=== PATIENT | female | born 1930 | race Caucasian/White ===

== ENCOUNTER 2017-03-20 13:44 | Observation (INO) | payer MEDICARE, OTHER ==
[~2017-03-20] VITALS: Ht 157.5 cm; Wt 94.0 kg
[~2017-03-20 13:44] MED LIST: ALTOPREV20 MG OR; AMLODIPINE10 MG OR; AMLODIPINE10 MG PO; AMLODIPINE5 MG PO; ASPIRIN81 MG PO; CIPRO XR500 MG PO; CIPRO500 MG PO; CLINDAMYCIN300 M1 PO; COREG25 MG OR; COREG25 MG PO; COUMADIN5 MG PO; COUMADIN7.5 MG PO; COZAAR100 MG PO; D 5000 OR; D3-50 OR; DIAZEPAM5 M1 PO; DICLOXACILL250 MG PO; DIFLUCAN150 MG PO; DOXYCYC MONO100 M1 OR; DUONEB IN; ENALAPRIL20 MG OR; FLAGYL500 MG PO; FLEXERIL10 MG OR; FLEXERIL5 M1 PO; FLONASE0.05 %; FOSAMAX70 MG OR; FUROSEMIDE40 MG OR; FUROSEMIDE40 MG PO; GABAPENTIN100 MG OR; GABAPENTIN100 MG PO; HOME O2; HUMALOG100 MG/ML SC; HYDROCO/APAP1 T10 PO; HYDROCO/APAP1 T11; HYDROCO/APAP1 TA9 PO; HYDROCODONE/ACE1 TA2 PO; HYDROCODONE/ACE1 TAB PO; HYZAAR1 TAB PO; IPRATROPIUM BROMIDE/; LANTUS100 MG/ML SC; LASIX 40 MG TAB40 MG PO; LEVAQUIN500 MG OR; LEVEMIR1000 UNITS SC; LISINOPRIL10 MG OR; LORTAB 10-325 M1 TAB PO; LOSARTAN POT100 MG PO; LOSARTAN POT50 MG PO; LOSARTAN/HCT1 TA1 PO; LYRICA50 MG PO; MAGNESIUM OXID400 M1 PO; MEDDOSEPAK OR; MEDDOSEPAK PO; MEPHYTON5 MG PO; METFORMIN500 M1 OR; METHYLPRED4 MG PO; METOPROLOL SUCC50 MG PO; METRONIDAZOL500 MG PO; NAPROSYN500 MG PO; NEURONTIN300 MG PO; NIFEDIPINE ER90 M1 PO; NITROSTAT0.4 MG PO; NORCO1 TAB PO; NORVASC10 MG OR; NOVOLIN 70/30; NOVOLIN 70/30 RELION SC; NOVOLIN 70/30 SC; NOVOLIN N1 ML SC; NOVOLOG FLEXPEN SC; NOVOLOG MIX SC; NOVOLOG100 IU/1 M SC; OMEPRAZOLE20 M2 PO; OXYBUTYNIN5 MG PO; PEN NEEDLES SC; POT CHLORIDE10 ME1 PO; PRAVACHOL40 MG PO; PRAVASTATIN40 MG PO; PREDNISONE20 MG PO; PRILOSEC20 MG PO; PRILOSEC20 MG/CAP PO; PROCARDIA XL30 MG PO; PROTONIX20 MG PO; SERTRALINE50 MG OR; TIZANIDINE2 MG PO; TRAMADOL HCL E100 MG OR; TRAMADOL HCL50 MG PO; TUSSIONEX1 ML OR; TYLENOL 500MG TAB PO; ULTRAM50 M1 PO; VALIUM2 MG PO; VALIUM5 MG PO; VICODIN1 TAB OR; WARFARIN SODIUM5 MG PO; ZESTRIL40 MG PO; ZITHROMAX250 MG PO; ZPAK OR; [UNRECOGNIZED DRUG - OTHER] OR; [UNRECOGNIZED DRUG - REMARK]
--- NOTE | 2017-03-20 13:44 | NUR ---
PT TO ROOM VIA EMS FOR TREATMENT
--- NOTE | 2017-03-20 13:55 | NUR ---
ADDITIONAL IV ATTEMPT X2 UNSUCCESSFUL. PT STATES "IM A HARD STICK,THATS NOTHING NEW".NO DISTRESS AT THIS TIME. VSS
[2017-03-20] MEDS ORDERED: LOSARTAN/HCT1 TA1 PO (13:58)
[2017-03-20] MEDS ORDERED: NAPROXEN500 MG PO (13:58)
[2017-03-20] MEDS ORDERED: MAGNESIUM400 MG PO (13:59)
[2017-03-20] MEDS ORDERED: HYDROCO/APAP1 T13 PO (14:01)
--- NOTE | 2017-03-20 14:28 | NUR ---
PT SETUP WITH GRAHAM VICKERS. [facility] [address] [facility] PT ALERT AND CONVERSIVE. SPOKE WITH DAUGHTER ON TELEPHONE.
--- NOTE | 2017-03-20 15:20 | NUR ---
LAB AT TO DRAW LABS. UNABLE TO DRAW LACTIC ACID. PT AWAKE AND ALERT. ONLY C/O I'M COLD. WARM BLANKETS FOR COMFORT.
[2017-03-20 15:25] LABS: ALBUMIN 3.4 g/dL (3.2-5.0); ALKALINE PHOSPHATASE 75 u/l (38-126); AMYLASE 35 u/l (30-110); ANION GAP 14 (6-22 (CALC)); BILIRUBIN, TOTAL 0.7 mg/dL (0.0-1.4); BUN 32 mg/dL (8-23); BUN/CREATININE RATIO 33 (12-20 (CALC)); CALCIUM 9.7 mg/dL (8.4-10.2); CARBON DIOXIDE 22 mmol/l (22-30); CHLORIDE 111 mmol/l (95-108); GFR 52 ML/MIN (>=60 (CALC)); GFR FOR AFR.AMER. > 60 ML/MIN (>=60 (CALC)); GLUCOSE 99 mg/dL (82-115); LIPASE 35 u/l (23-300); POTASSIUM 4.4 mmol/l (3.5-5.1); SGOT/AST 22 u/l (9-36); SGPT/ALT 26 u/l (11-66); SODIUM 143 mmol/l (137-146); TOTAL PROTEIN 6.4 g/dL (6.3-8.2)
--- NOTE | 2017-03-20 15:35 | NUR ---
DR BALDERAS AT BEDSIDE AND JOSE MARTIN DRAWN RT GROIN. PT TOLERATED WELL. VSS. PT THEN TO CT FOR CT SCAN
[2017-03-20 15:36] LABS: MYOGLOBIN 62 ng/mL (0 - 62)
[2017-03-20 16:29] LABS: HEMOGLOBIN 11.4 g/dl (12.0-16.0); IMMATURE GRANULOCYTES 0.5 % (0.0-1.0); MEAN CELL VOLUME 92.8 fL CALC (80.0-100.0); MEAN CORPUSCULAR HGB 30.2 pG CALC (26.0-32.0); MEAN CORPUSCULAR HGB CONC 32.6 g/L CALC (32.0-36.0); NEUT# 9.27 thou/uL (2.00-7.15); RED BLOOD COUNT 3.77 mill/uL (4.20-5.60); RED CELL DISTRI WIDTH 13.2 % (11.5-15.5)
[2017-03-20 16:41] LABS: URINE BILIRUBIN - DIPSTICK NEGATIVE (NEGATIVE); URINE BLOOD DIPSTICK NEGATIVE (NEGATIVE); URINE COLOR YELLOW; URINE GLUCOSE - DIPSTICK 100 mg/dL (NEGATIVE); URINE KETONE NEGATIVE (NEGATIVE); URINE LEUK ESTERASE NEGATIVE (NEGATIVE); URINE PH 6.5 (4.5-8.0); URINE PROTEIN - DIPSTICK 100 mg/dL (NEG-TRACE); URINE SPECIFIC GRAVITY 1.015; URINE UROBILINOGEN - DIPSTICK 0.2 E.U./dL (0.2)
--- NOTE | 2017-03-20 16:43 | NUR ---
PT CONSUMED STRAWBERRY GLUCERNA WELL. PT STATES "I LIKED THAT'. MEDICATED FOR BP.
[2017-03-20 16:44] LABS: URINE CLARITY SLIGHT CLOUDY; URINE NITRITE - DIPSTICK POSITIVE (Negative)
[2017-03-20 16:45] LABS: URINE BACTERIA MANY hpf; URINE SQUAMOUS EPITHELIAL CELL FEW EPI/hpf (0-FEW)
--- NOTE | 2017-03-20 17:46 | NUR ---
UP TO CHAIR AT BEDSIDE, EATING EVENING MEAL. PT STATES SHE IS FEELING BETTER.
--- NOTE | 2017-03-20 17:47 | NUR ---
MONROY AT BEDSIDE
--- NOTE | 2017-03-20 18:15 | NUR ---
PT EATING EVENING MEAL SITTING UP AT BEDSIDE. VSS
--- NOTE | 2017-03-20 19:10 | NUR ---
RECEIVED REPORT FROM LIVAN RODRIGUEZ. IN ROOM INTRODUCED SELF TO PT. NO C/O.
--- NOTE | 2017-03-20 20:10 | NUR ---
OOB TO BSC WITH ASSIST.
--- NOTE | 2017-03-20 20:28 | NUR ---
ACCU CHECK 110, MD AWARE.
--- NOTE | 2017-03-20 20:40 | NUR ---
DR VÁZQUEZ MADE AWARE THAT PT. BP IS ELEVATED AT 201/90 AND THAT SHE IS C/O LEG PAIN. NEW ORDERS RECEIVED AND FAXED.
--- NOTE | 2017-03-20 21:11 | NUR ---
PO PAIN MED GIVEN PER MD ORDER. 0213 PO ANTIHYPERTENSIVE GIVEN PER MD ORDER.
--- NOTE | 2017-03-20 21:25 | NUR ---
PT. STATES HER LEFT LEG PAIN HAS NOW DECREASED TO A 9 ON A SCALE OF 1-10.
--- NOTE | 2017-03-20 21:30 | NUR ---
PT. BP NOW 192/77.
--- NOTE | 2017-03-20 21:36 | NUR ---
Admission Note Report Given to: BRAD Transported by: Wheelchair X Stretcher Transported with: X Nurse Transporter X Patent IV O2 Hard Tile Setter Apprentice
--- NOTE | 2017-03-20 21:40 | NUR ---
PT. TRANSFERD TO [facility] [place]ER.
--- NOTE | 2017-03-20 21:45 | NUR ---
PT RECEIVED FROM ER VIA STRETCHER ACCOMPANIED BY ANNABEL RODRIGUEZ, OUT OF STRETCHER TO STANDING SCALE THEN TO BED WITH STEADY GAIT. A/O X3, RESPIRATIONS EVEN AND UNLABORED ON RA. C/O LOWER BACK AND LEFT LEG PAIN 07/04, WAS MEDICATED WITH LORTAB IN ER. ACCUCHECK 130. PO FLUIDS IN REACH. ORIENTED TO BED CONTROLS AND CALL LIGHT. WILL CONTINUE TO MONITOR.
[2017-03-20 21:55] VITALS: BP 166/66
--- NOTE | 2017-03-20 22:47 | NUR ---
PT STATES LORTAB 5MG DONT HELP HER PAIN, ADMITS TO TAKING LORTAB 10MG AT HOME. DR. VÁZQUEZ CALLED BY THIS WRITTER INFORMED OF PT'S UA RESULT AND C/O PAIN MED. NEW ORDER RECEIVED FOR LORTAB 10MG, DC LORAB 5MG AT THIS TIME.
[2017-03-20 23:35] VITALS: BP 153/79
[2017-03-20 23:38] VITALS: BP 147/68
--- NOTE | 2017-03-21 00:43 | NUR ---
RESTING IN SEMIFOWLERS WITH EYES CLOSED, RESPIRATIONS EVEN AND UNLABORED ON RA.
--- NOTE | 2017-03-21 02:10 | NUR ---
OOB TO BSC, VOIDING DARK YELLOW URINE, BACK TO BED. CALL LIGHT IN REACH.
[2017-03-21 04:05] VITALS: BP 161/60
--- NOTE | 2017-03-21 05:31 | NUR ---
RESTING ON RIGHT SIDE WITH EYES CLOSED, RESPIRATIONS EVEN AND UNLABORED, CALL LIGHT IN REACH.
[2017-03-21 06:07] LABS: HEMATOCRIT 33.4 % (37.0-47.0); HEMOGLOBIN 10.8 g/dl (12.0-16.0); IMMATURE GRANULOCYTES 0.2 % (0.0-1.0); MEAN CELL VOLUME 93.3 fL CALC (80.0-100.0); MEAN CORPUSCULAR HGB 30.2 pG CALC (26.0-32.0); MEAN CORPUSCULAR HGB CONC 32.3 g/L CALC (32.0-36.0); NEUT# 3.81 thou/uL (2.00-7.15); RED BLOOD COUNT 3.58 mill/uL (4.20-5.60); RED CELL DISTRI WIDTH 13.1 % (11.5-15.5)
[2017-03-21 06:31] LABS: ALKALINE PHOSPHATASE 66 u/l (38-126); ANION GAP 13 (6-22 (CALC)); BILIRUBIN, TOTAL 0.6 mg/dL (0.0-1.4); BUN 30 mg/dL (8-23); BUN/CREATININE RATIO 30 (12-20 (CALC)); CALCIUM 9.7 mg/dL (8.4-10.2); CALCULATED LDLCHOLESTEROL 68 mg/dL (62-129 (CALC)); CARBON DIOXIDE 25 mmol/l (22-30); CHLORIDE 106 mmol/l (95-108); GFR 52 ML/MIN (>=60 (CALC)); GFR FOR AFR.AMER. > 60 ML/MIN (>=60 (CALC)); GLUCOSE 188 mg/dL (82-115); HDL CHOLESTEROL 39 mg/dL (>=40); POTASSIUM 4.9 mmol/l (3.5-5.1); SGOT/AST 15 u/l (9-36); SGPT/ALT 25 u/l (11-66); SODIUM 139 mmol/l (137-146); TOTAL CHOLESTEROL 123 mg/dl (0-199); TOTAL PROTEIN 5.6 g/dL (6.3-8.2); TOTAL TRIGLYCERIDES 77 mg/dl (30-149); VLDL CHOLESTROL 15 mg/dl (0-48 (CALC))
[2017-03-21 07:36] VITALS: BP 182/86
--- NOTE | 2017-03-21 07:42 | NUR ---
REPORT RECEIVED FROM SUSIE SALINAS. PT ASSISTED TO SIDE OF BED FOR BREAKFAST. PT DENIES PAIN. NO NAUSEA. REPORTING OF CONCERNS ENCOURAGED. PLAN OF CARE DISCUSSED. FALL PRECAUTIONS REINFORCED. CALL LIGHT REVIEWED AND IN REACH. PT STATES UNDERSTANDING.
--- NOTE | 2017-03-21 09:00 | NUR ---
DR. VÁZQUEZ IN TO SEE PT. PLAN OF CARE DISCUSSED. RESTARTING OF PT'S HOME MEDS, STARTING IVF AND ABX. PT STATES UNDERSTANDING OF THIS INFORMATION.
--- NOTE | 2017-03-21 14:00 | NUR ---
PT'S DAUGHTER AT BEDSIDE. INQUIRING ABOUT PLAN OF CARE. PT'S DAUGHTER UPDATED. SHE STATES " BUT SHE SAID DR. VÁZQUEZ IS TAKING HER OFF ALL HER MEDICINE." PT ALSO REASSURED OF MEDICATIONS ORDERED.
[2017-03-21 16:14] VITALS: BP 151/70
--- NOTE | 2017-03-21 16:17 | NUR ---
PT UP TO BSC. TOLERATED ACTIVITY WELL.
[2017-03-21 19:18] VITALS: BP 150/65
--- NOTE | 2017-03-21 20:37 | NUR ---
PT. RESTING IN BED WITH NO DISTRESS NOTED. SCHED MEDS GIVEN. ASSESSMENT COMPLETED. IV SITE PATENT TO [facility], EMS SITE, PER DAYSHIFT NURSE, DR. VÁZQUEZ GAVE THE OKAY TO LEAVE IV SITE IN D/T PT. IS GOING TO BE DISCHARGED IN AM. PT. GIVEN SCHED MEDS PER ORDER. PT. DENIES NEEDS AT THIS TIME. ENCOURAGED TO CALL FOR ANY NEEDS. CALL LIGHT IS IN REACH.WILL CONTINUE TO MONITOR.
--- NOTE | 2017-03-21 23:19 | NUR ---
PT. C/O LLE PAIN 09/03, MEDICATED WITH ORDERED PRN LORTAB, WILL REASSESS. PO FLUIDS OFFERED. ENCOURAGED TO CALL FOR ANY NEEDS. CALL LIGHT IS IN REACH.
[2017-03-22 03:44] VITALS: BP 155/63
--- NOTE | 2017-03-22 03:44 | NUR ---
PT. RESTING IN BED WITH NO DISTRESS NOTED. DENIES NEEDS. VS OBTAINED. CALL LIGHT IS IN REACH. WILL CONTINUE TO MONITOR.
[2017-03-22 06:05] LABS: HEMATOCRIT 31.9 % (37.0-47.0); HEMOGLOBIN 10.3 g/dl (12.0-16.0); IMMATURE GRANULOCYTES 0.2 % (0.0-1.0); MEAN CELL VOLUME 93.3 fL CALC (80.0-100.0); MEAN CORPUSCULAR HGB 30.1 pG CALC (26.0-32.0); MEAN CORPUSCULAR HGB CONC 32.3 g/L CALC (32.0-36.0); NEUT# 3.91 thou/uL (2.00-7.15); RED BLOOD COUNT 3.42 mill/uL (4.20-5.60)
[2017-03-22 06:15] LABS: ALBUMIN 2.8 g/dL (3.2-5.0); BILIRUBIN, TOTAL 0.4 mg/dL (0.0-1.4); CALCIUM 9.3 mg/dL (8.4-10.2); CREATININE 1.1 mg/dL (0.5-1.0); POTASSIUM 4.8 mmol/l (3.5-5.1); TOTAL PROTEIN 5.4 g/dL (6.3-8.2)
--- NOTE | 2017-03-22 07:00 | NUR ---
REPORT RECIEVED FROM MICHAEL DAVILA; PT RESTING IN BED WITH EYES CLOSED; NO S/S OF DISTRESS NOTED; IVF INFUSING AT PRESCRIBED RATE; FALL PRECAUTIONS IN PLACE; CALL LIGHT WITHIN REACH; WILL CONTINUE TO MONITOR
[2017-03-22 08:17] VITALS: BP 174/65
--- NOTE | 2017-03-22 12:00 | NUR ---
PT SITTING UP CHAIR AT BEDSIDE; NO S/S OF DISTRESS NOTED; PT REPORTS BM AFTER MAG CITRATE; PT DENIES ANY PAIN AT THIS TIME;CALL LIGHT WITHIN REACH; WILL CONTINUE TO MONITOR
--- NOTE | 2017-03-22 15:03 | NUR ---
Discharge instructions given. Patient verbalizes understanding of same. Discharged in stable condition via Ambulatory to Home with family. All belongings sent with pt.
== END 2017-03-22 15:04 | disposition home or self-care (01) ==
LOC: ENPENDDIS → ED 13:44 → ED-I 17:37 → ED 20:06 → MS2 20:07
PROVIDERS: Emergency Medicine; ADMIT Internal Medicine Geriatric Medicine; ATTEND Internal Medicine Geriatric Medicine
DX: E11.649 Type 2 diabetes mellitus with hypoglycemia without coma (principal); E86.0 Dehydration; I10 Essential (primary) hypertension; I25.10 Atherosclerotic heart disease of native coronary artery without angina pectoris; E78.5 Hyperlipidemia, unspecified; K21.9 Gastro-esophageal reflux disease without esophagitis; M15.9 Polyosteoarthritis, unspecified; E03.9 Hypothyroidism, unspecified; K27.9 Peptic ulcer, site unspecified, unspecified as acute or chronic, without hemorrhage or perforation; E11.40 Type 2 diabetes mellitus with diabetic neuropathy, unspecified; E66.01 Morbid (severe) obesity due to excess calories; F03.90 Unspecified dementia, unspecified severity, without behavioral disturbance, psychotic disturbance, mood disturbance, and anxiety; N39.0 Urinary tract infection, site not specified; B96.20 Unspecified Escherichia coli [E. coli] as the cause of diseases classified elsewhere; K59.00 Constipation, unspecified; M54.16 Radiculopathy, lumbar region; R11.2 Nausea with vomiting, unspecified; R19.7 Diarrhea, unspecified; R10.13 Epigastric pain

== ENCOUNTER 2017-04-02 14:46 | Emergency (ER) | payer MEDICARE, OTHER ==
[~2017-04-02] VITALS: Ht 157.5 cm; Wt 100.0 kg
[~2017-04-02 14:46] MED LIST changes: +HYDROCO/APAP1 T13 PO; +MAGNESIUM400 MG PO; +NAPROXEN500 MG PO
[2017-04-02 16:47] LABS: HEMATOCRIT 35.5 % (37.0-47.0); HEMOGLOBIN 11.4 g/dl (12.0-16.0); IMMATURE GRANULOCYTES 0.3 % (0.0-1.0); MEAN CELL VOLUME 93.7 fL CALC (80.0-100.0); MEAN CORPUSCULAR HGB 30.1 pG CALC (26.0-32.0); MEAN CORPUSCULAR HGB CONC 32.1 g/L CALC (32.0-36.0); NEUT# 6.65 thou/uL (2.00-7.15); RED BLOOD COUNT 3.79 mill/uL (4.20-5.60); RED CELL DISTRI WIDTH 13.6 % (11.5-15.5)
[2017-04-02 16:58] LABS: ALBUMIN 3.5 g/dL (3.2-5.0); BILIRUBIN, TOTAL 0.6 mg/dL (0.0-1.4); CREATININE 1.4 mg/dL (0.5-1.0); TOTAL PROTEIN 6.6 g/dL (6.3-8.2)
[2017-04-02] MEDS ORDERED: PERCOCET 5/325M1 TAB PO (18:56)
[2017-04-02 19:20] VITALS: BP 197/90
== END 2017-04-02 19:45 | disposition home or self-care (01) ==
LOC: ED 14:46
PROVIDERS: Emergency Medicine
DX: M54.16 Radiculopathy, lumbar region (principal); I10 Essential (primary) hypertension; E11.9 Type 2 diabetes mellitus without complications; J44.9 Chronic obstructive pulmonary disease, unspecified; I25.10 Atherosclerotic heart disease of native coronary artery without angina pectoris; E78.5 Hyperlipidemia, unspecified; M19.90 Unspecified osteoarthritis, unspecified site

== ENCOUNTER 2017-05-08 14:32 | Emergency (ER) | payer MEDICARE, OTHER ==
[~2017-05-08] VITALS: Ht 157.5 cm; Wt 88.6 kg
[~2017-05-08 14:32] MED LIST changes: +PERCOCET 5/325M1 TAB PO
[2017-05-08] MEDS ORDERED: LOSARTAN/HCT1 TA2 PO (15:17)
[2017-05-08] MEDS ORDERED: LASIX 40 MG TAB40 MG PO (15:17)
[2017-05-08] MEDS ORDERED: LORTAB 10-325 M1 TAB PO (15:18)
[2017-05-08] MEDS ORDERED: LOSARTAN POT50 MG PO (15:19)
[2017-05-08] MEDS ORDERED: DIPHENHYDRAM25 MG PO (15:20)
[2017-05-08] MEDS ORDERED: CYMBALTA30 MG PO (15:20)
[2017-05-08] MEDS ORDERED: TIZANIDINE HCL2 M1 PO (15:21)
[2017-05-08] MEDS ORDERED: PERCOCET 5/325M1 TAB PO (17:10)
[2017-05-08] MEDS ORDERED: EC-NAPROSYN500 MG PO (17:10)
[2017-05-08] MEDS ORDERED: PREDNISONE10 MG PO (17:12)
[2017-05-08 17:16] VITALS: BP 138/75
== END 2017-05-08 17:25 | disposition home or self-care (01) ==
LOC: ED 14:32
DX: G89.29 Other chronic pain (principal); M54.5 Low back pain; M25.562 Pain in left knee; M70.52 Other bursitis of knee, left knee

== ENCOUNTER 2018-02-27 15:35 | Emergency (ER) | payer MEDICARE, OTHER ==
[~2018-02-27] VITALS: Ht 157.5 cm; Wt 87.2 kg
[~2018-02-27 15:35] MED LIST changes: +CYMBALTA30 MG PO; +DIPHENHYDRAM25 MG PO; +EC-NAPROSYN500 MG PO; +LOSARTAN/HCT1 TA2 PO; +PREDNISONE10 MG PO; +TIZANIDINE HCL2 M1 PO
[2018-02-27] MEDS ORDERED: VICODIN1 TA1 PO (16:30)
[2018-02-27 16:41] VITALS: BP 129/90
== END 2018-02-27 16:50 | disposition home or self-care (01) ==
LOC: ED 15:35
DX: Z48.02 Encounter for removal of sutures (principal); M54.5 Low back pain; G89.29 Other chronic pain

== ENCOUNTER 2018-03-17 12:59 | Inpatient (IN) | payer MEDICARE, OTHER ==
[~2018-03-17] VITALS: Ht 157.5 cm; Wt 83.6 kg
[~2018-03-17 12:59] MED LIST changes: +VICODIN1 TA1 PO
[2018-03-17 14:02] LABS: HEMATOCRIT 31.6 % (37.0-47.0); IMMATURE GRANULOCYTES 0.4 % (0.0-1.0); MEAN CELL VOLUME 95.2 fL CALC (80.0-100.0); MEAN CORPUSCULAR HGB 30.1 pG CALC (26.0-32.0); MEAN CORPUSCULAR HGB CONC 31.6 g/L CALC (32.0-36.0); NEUT# 5.5 thou/uL (2.00-7.15); RED BLOOD COUNT 3.32 mill/uL (4.20-5.60); RED CELL DISTRI WIDTH 15.2 % (11.5-15.5)
[2018-03-17 14:21] LABS: ALBUMIN 3.5 g/dL (3.2-5.0); ALKALINE PHOSPHATASE 85 u/l (38-126); BILIRUBIN, TOTAL 0.3 mg/dL (0.0-1.4); BUN 35 mg/dL (8-23); BUN/CREATININE RATIO 28 (12-20 (CALC)); CARBON DIOXIDE 28 mmol/l (22-30); CHLORIDE 101 mmol/l (95-108); CREATININE 1.3 mg/dL (0.5-1.0); GFR 39 ML/MIN (>=60 (CALC)); GFR FOR AFR.AMER. 47 ML/MIN (>=60 (CALC)); SGOT/AST 21 u/l (9-36); SGPT/ALT 24 u/l (11-66); SODIUM 138 mmol/l (137-146)
[2018-03-17 14:24] LABS: ANION GAP 14 (6-22 (CALC)); POTASSIUM 5.4 mmol/l (3.5-5.1)
[2018-03-17 14:34] LABS: MYOGLOBIN 60 ng/mL (0 - 62)
[2018-03-17 15:00] LABS: URINE BILIRUBIN - DIPSTICK NEGATIVE (NEGATIVE); URINE BLOOD DIPSTICK NEGATIVE (NEGATIVE); URINE COLOR YELLOW; URINE GLUCOSE - DIPSTICK NEGATIVE (NEGATIVE); URINE KETONE NEGATIVE (NEGATIVE); URINE LEUK ESTERASE NEGATIVE (NEGATIVE); URINE NITRITE - DIPSTICK NEGATIVE (Negative); URINE PROTEIN - DIPSTICK 100 mg/dL (NEG-TRACE); URINE SPECIFIC GRAVITY 1.025; URINE UROBILINOGEN - DIPSTICK 0.2 E.U./dL (0.2)
[2018-03-17 15:12] LABS: URINE CLARITY CLEAR
[2018-03-17 15:13] LABS: URINE RBC 0-2 RBC/hpf (0-5); URINE SQUAMOUS EPITHELIAL CELL FEW EPI/hpf (0-FEW); URINE WBC 0-2 WBC/hpf (0-5)
[2018-03-17] MEDS ORDERED: NOVOLIN R100 UNIT/M (16:00)
[2018-03-17] MEDS ORDERED: NAMENDA10 MG PO (16:01)
[2018-03-17] MEDS ORDERED: METOPROL TAR25 MG PO (16:01)
[2018-03-17] MEDS ORDERED: DITROPAN PO (16:01)
[2018-03-17] MEDS ORDERED: TRIAMCINOLON0.11 EX (16:02)
[2018-03-17] MEDS ORDERED: ASPIRIN81 MG PO (16:02)
[2018-03-17] MEDS ORDERED: PROCARDIA XL90 MG PO (16:02)
[2018-03-17 18:32] VITALS: BP 176/74
[2018-03-18 04:00] VITALS: BP 153/71
[2018-03-18 07:46] VITALS: BP 165/54
[2018-03-18 09:26] LABS: ANION GAP 15 (6-22 (CALC)); BUN 26 mg/dL (8-23); BUN/CREATININE RATIO 25 (12-20 (CALC)); CARBON DIOXIDE 23 mmol/l (22-30); CHLORIDE 104 mmol/l (95-108); GFR 52 ML/MIN (>=60 (CALC)); GFR FOR AFR.AMER. > 60 ML/MIN (>=60 (CALC)); SODIUM 137 mmol/l (137-146)
[2018-03-18 09:31] LABS: POTASSIUM 5.2 mmol/l (3.5-5.1)
[2018-03-18 15:10] VITALS: BP 154/66
[2018-03-18 18:42] VITALS: BP 161/76
[2018-03-19] VITALS (7 sets, daily range): BP systolic 144–175; BP diastolic 54–92
[2018-03-19 05:14] LABS: HEMATOCRIT 32.5 % (37.0-47.0); HEMOGLOBIN 10.3 g/dl (12.0-16.0); MEAN CELL VOLUME 94.8 fL CALC (80.0-100.0); MEAN CORPUSCULAR HGB CONC 31.7 g/L CALC (32.0-36.0); RED BLOOD COUNT 3.43 mill/uL (4.20-5.60)
[2018-03-19 05:27] LABS: CREATININE 1.2 mg/dL (0.5-1.0); MAGNESIUM 1.9 mg/dL (1.6-2.3); POTASSIUM 4.9 mmol/l (3.5-5.1)
[2018-03-20 04:53] VITALS: BP 138/60
[2018-03-20 05:05] LABS: HEMATOCRIT 31.9 % (37.0-47.0); HEMOGLOBIN 10.3 g/dl (12.0-16.0); MEAN CORPUSCULAR HGB CONC 32.3 g/L CALC (32.0-36.0); RED BLOOD COUNT 3.43 mill/uL (4.20-5.60); RED CELL DISTRI WIDTH 14.6 % (11.5-15.5)
[2018-03-20 05:18] LABS: CREATININE 1.3 mg/dL (0.5-1.0); POTASSIUM 4.8 mmol/l (3.5-5.1)
[2018-03-20 05:42] VITALS: BP 181/75
[2018-03-20 05:44] VITALS: BP 178/77
[2018-03-20 05:47] VITALS: BP 163/80
[2018-03-20 07:59] VITALS: BP 145/68
[2018-03-20 08:15] VITALS: BP 145/68
[2018-03-20] MEDS ORDERED: TRAMADOL HCL50 MG PO (12:23)
[2018-03-20] MEDS ORDERED: SEROQUEL25 MG PO (14:56)
== END 2018-03-20 15:35 | disposition home health service (06) | DRG 884 ==
LOC: ED 12:59 → ED-I 17:04 → ED 17:14 → MS2 17:15
PROVIDERS: Emergency Medicine; Internal Medicine; Nurse Practitioner Family; ADMIT Internal Medicine; ATTEND Internal Medicine
DX: F03.91 Unspecified dementia, unspecified severity, with behavioral disturbance (principal); E11.22 Type 2 diabetes mellitus with diabetic chronic kidney disease; E11.42 Type 2 diabetes mellitus with diabetic polyneuropathy; S92.511A Displaced fracture of proximal phalanx of right lesser toe(s), initial encounter for closed fracture; D64.9 Anemia, unspecified; E03.9 Hypothyroidism, unspecified; I13.10 Hypertensive heart and chronic kidney disease without heart failure, with stage 1 through stage 4 chronic kidney disease, or unspecified chronic kidney disease; I25.10 Atherosclerotic heart disease of native coronary artery without angina pectoris; M19.90 Unspecified osteoarthritis, unspecified site; K21.9 Gastro-esophageal reflux disease without esophagitis; J44.9 Chronic obstructive pulmonary disease, unspecified; N18.3 Chronic kidney disease, stage 3 (moderate); E04.1 Nontoxic single thyroid nodule; E86.0 Dehydration; M79.605 Pain in left leg; R39.15 Urgency of urination; R35.0 Frequency of micturition; W19.XXXA Unspecified fall, initial encounter; Y92.009 Unspecified place in unspecified non-institutional (private) residence as the place of occurrence of the external cause; Z86.718 Personal history of other venous thrombosis and embolism; Z91.81 History of falling; Z86.73 Personal history of transient ischemic attack (TIA), and cerebral infarction without residual deficits; Z87.891 Personal history of nicotine dependence
CPT/HCPCS: G0378; J1650; Q9967

== ENCOUNTER 2018-04-11 14:11 | Emergency (ER) | payer MEDICARE, OTHER ==
[~2018-04-11] VITALS: Ht 157.5 cm; Wt 90.0 kg
[~2018-04-11 14:11] MED LIST changes: +DITROPAN PO; +METOPROL TAR25 MG PO; +NAMENDA10 MG PO; +NOVOLIN R100 UNIT/M; +PROCARDIA XL90 MG PO; +SEROQUEL25 MG PO; +TRIAMCINOLON0.11 EX
[2018-04-11 15:31] VITALS: BP 164/61
== END 2018-04-11 15:34 | disposition home or self-care (01) ==
LOC: ED 14:11
DX: S92.512A Displaced fracture of proximal phalanx of left lesser toe(s), initial encounter for closed fracture (principal); E11.9 Type 2 diabetes mellitus without complications; I10 Essential (primary) hypertension; J44.9 Chronic obstructive pulmonary disease, unspecified; I25.10 Atherosclerotic heart disease of native coronary artery without angina pectoris; E78.5 Hyperlipidemia, unspecified; W06.XXXA Fall from bed, initial encounter

== ENCOUNTER 2018-11-29 15:53 | Inpatient (IN) | payer MEDICARE, MEDICAID ==
[~2018-11-29] VITALS: Ht 157.5 cm; Wt 85.5 kg
--- NOTE | 2018-11-29 16:03 | NUR ---
PATIENT TO ROOM VIA EMS AND VOICES NO COMPLAINTS AT THIS TIME. MD NOTIFIED OF PATIENTS STATUS
[2018-11-29] MEDS ORDERED: GLIPIZIDE5 MG PO (16:36)
[2018-11-29] MEDS ORDERED: LOSARTAN POT50 MG PO (16:37)
[2018-11-29] MEDS ORDERED: AMLODIPINE5 MG PO (16:37)
[2018-11-29] MEDS ORDERED: TRAMADOL HYDROC50 MG PO (16:38)
[2018-11-29] MEDS ORDERED: HYDROCO/APAP1 TA9 PO (16:39)
[2018-11-29 17:08] LABS: URINE BILIRUBIN - DIPSTICK NEGATIVE (NEGATIVE); URINE BLOOD DIPSTICK TRACE-LYSED (NEGATIVE); URINE COLOR YELLOW; URINE GLUCOSE - DIPSTICK 100 mg/dL (NEGATIVE); URINE KETONE NEGATIVE (NEGATIVE); URINE LEUK ESTERASE NEGATIVE (NEGATIVE); URINE PROTEIN - DIPSTICK >=300 mg/dL (NEG-TRACE); URINE SPECIFIC GRAVITY 1.025; URINE UROBILINOGEN - DIPSTICK 0.2 E.U./dL (0.2)
--- NOTE | 2018-11-29 17:10 | NUR ---
DAUGHTER STATES PATIENT HAVING RIGHT SIDED WEAKNESS AND RIGHT SIDED FACIAL DROOP OFF AND ON FOR PAST COUPLE OF DAYS. DAUGHTER UNSURE OF ONSET TIME OTHER THAN A COUPLE OF DAYS. PATIENT CURRENTLY HAS AN NIHSS OF 0. MD NOTIFIED OF PATIENT STATUS
--- NOTE | 2018-11-29 17:12 | NUR ---
DAUGHTER STATES THAT WHERE SHE IS STAYING TOLD HER THAT PT HAS BEEN OUT OF HER BLOOD PRESSURE MEDICATION AND BLOOD SUGAR MEDICATION SINCE THE FIRST. ALTHOUGH THE MEDICATION REC THAT WAS SENT WITH PT SHOWS INITIALS THAT APPEAR THAT IT WAS THE MEDICATIONS WAS GIVEN ON THE 4TH LAST.
[2018-11-29 17:21] LABS: URINE NITRITE - DIPSTICK POSITIVE (Negative)
[2018-11-29 17:34] LABS: URINE BACTERIA MANY hpf; URINE SQUAMOUS EPITHELIAL CELL FEW EPI/hpf (0-FEW)
[2018-11-29 18:02] LABS: HEMATOCRIT 31.6 % (37.0-47.0); HEMOGLOBIN 10.3 g/dl (12.0-16.0); IMMATURE GRANULOCYTES 0.3 % (0.0-5.0); MEAN CELL VOLUME 92.9 fL CALC (80.0-100.0); MEAN CORPUSCULAR HGB 30.3 pG CALC (26.0-32.0); MEAN CORPUSCULAR HGB CONC 32.6 g/L CALC (32.0-36.0); NEUT# 3.56 thou/uL (2.00-7.15); RED BLOOD COUNT 3.4 mill/uL (4.20-5.60); RED CELL DISTRI WIDTH 13.8 % (11.5-15.5)
--- NOTE | 2018-11-29 18:03 | NUR ---
PT RESTING QUIETLY ON STRETCHER, DAUGHTER REMAINS AT BEDSIDE, DOCTOR NOTIFIED OF BLOOD PRESSURE
[2018-11-29 18:19] LABS: BILIRUBIN, TOTAL 0.3 mg/dL (0.0-1.4); CREATININE 1.2 mg/dL (0.5-1.0); POTASSIUM 4.8 mmol/l (3.5-5.1); TOTAL PROTEIN 5.8 g/dL (6.3-8.2)
--- NOTE | 2018-11-29 19:00 | NUR ---
PT REMAINS ALERT/ORIENTED X3, DAUGHTER WENT HOME TO FEED ANIMALS. SIDE RAILS REMAIN UP AND CALL LIGHT WITHIN REACH, NO SLURRED SPEACH NOTED, NO INCREASED WEAKNESS TO ARMS. BLOOD PRESSURE HAS COME DOWN TO 170/80 PT STATES FEELS MUCH BETTER,
[2018-11-29 20:30] VITALS: BP 155/74
--- NOTE | 2018-11-29 22:52 | NUR ---
PATIENT RESTING IN BED-IV SITE TO RIGHT AC OCCLUDED AND D/C'ED. NEW IV SITE STARTED TO LEFT HAND WITH GOOD BLOOD RETURN. IVF PATENT AND INFUSING AT 75CC/HR. SAFETY PRECAUTIONS REINFORCED. CALL LIGHT IN REACH. WILL CONT TO MONITOR.
[2018-11-30] VITALS (12 sets, daily range): BP systolic 118–218; BP diastolic 52–80
--- NOTE | 2018-11-30 05:00 | NUR ---
0425-PATIENT PUT HER CALL LIGHT AND STATED "HELP ME, HELP ME"-RESPONDED TO THE ROOM AND PATIENT WAS INCONT OF LARGE AMT OF URINE IN BED-WHEN ASKED IF SHE STILL NEEDED TO VOID SHE STATED YES. ASSISTED PATIENT OOB TO THE [facility] TO VOID. PATIENT CONT TO BE DISTRAUGHT AND SAYING "HELP ME"THEN I CANT TALK. SEEMS TO BE HAVING WORD FOINDING DIFFICULTY. VERY UNSTEADY ON HER FEET AND SOB. ASSISTED BACK TO BED AND VS TAKEN WITH BP-192/75, HR-93 AND O2 SAT 91. O2 VIA NASAL CANNULA APPLIED. PATIENT CONT TO HAVE SOME WORD FINDING DIFFICULTY. HAND GRASP ARE EQUAL AND MODERATE. DR. VÁZQUEZ CALLED-ORDERS RECIEVED. [id number] AT THIS TIME. BP-190/80 EMILIA TO RIGHT ARM. PATIENT IS ORIENTED TO PERSON, PLACE AND SPEECH IS IMPROVING. STATES THAT SHE IS FEELING SOME BETTER. TELE MONITOR APPLIED AND LABS WERE DRAWN. AWAITING CLONIDINE TO BE PROFILED. CALL LIGHT IN REACH. WILL CONT TO MONITOR.
[2018-11-30 05:07] LABS: HEMATOCRIT 32.8 % (37.0-47.0); HEMOGLOBIN 10.8 g/dl (12.0-16.0); IMMATURE GRANULOCYTES 0.4 % (0.0-5.0); MEAN CELL VOLUME 92.9 fL CALC (80.0-100.0); MEAN CORPUSCULAR HGB 30.6 pG CALC (26.0-32.0); MEAN CORPUSCULAR HGB CONC 32.9 g/L CALC (32.0-36.0); NEUT# 3.33 thou/uL (2.00-7.15); RED BLOOD COUNT 3.53 mill/uL (4.20-5.60); RED CELL DISTRI WIDTH 13.6 % (11.5-15.5)
--- NOTE | 2018-11-30 05:17 | NUR ---
PATIENT RESTING IN BED AT THIS TIME WITH O2 VIA NASAL CANNULA IN PLACE. TELE MONITOR IN PLACE. IV TO LEFT HAND INTACT WITH IVF ORDERED. SITE REMAINS HEALTHY AT THIS TIME. MEDICATED WITH CLONIDINE 0.2MG PO ORDERED. SPEECH IS CLEARER THAN EARLIER THIS PAST HOUR. PATIENT STATES THAT SHE IS FEELING BETTER. PATIENT IS ORIENTED TO PERSON AND PLACE. KNOWS HER BIRTHDATE. INCONT OF URINE AGAIN. PERICARE DONE AND PADS WERE CHANGED, BARRIER CREAM APPLIED TO REDDENED BUTTOCKS. CALL LIGHT IN REACH. WILL CONT TO MONITOR.
[2018-11-30 05:19] LABS: ALBUMIN 3.1 g/dL (3.2-5.0); BILIRUBIN, TOTAL 0.4 mg/dL (0.0-1.4); CREATININE 1.2 mg/dL (0.5-1.0); POTASSIUM 4.6 mmol/l (3.5-5.1); TOTAL PROTEIN 6.1 g/dL (6.3-8.2)
--- NOTE | 2018-11-30 06:01 | NUR ---
BP-190/80-CLONIDINE 0.1MG PO IN APPLESAUCE GIVEN. PATIENT HAVING TROUBLE SIPPING THROUGH A STRAW THIS MORNING. STILL WITH SLURRED SPEECH BUT ORIENTEDX2 TO PERSON AND PLACE AND KNOW HER BIRTHDATE. HAND GRASPS ARE EQUAL. CALL LIGHT IN REACH. WILL CONT TO MONITOR.
--- NOTE | 2018-11-30 06:20 | NUR ---
PATIENT RESTING IN BED WITH O2 VIA NASAL CANNULA IN PLACE. MEDICATED WITH APRESOLINE 20MG IVP AND WITH PLAVIX 75MG PO IN APPLESAUCE. STILL WITH SLURRED SPEECH AND DIFFICULTY WITH SWALLOWING. CALL LIGHT IN REACH. WILL CONT TO MONITOR.
[2018-11-30 06:33] LABS: CHOLESTEROL HDL RATIO 3.6 (<4.4 (CALC))
--- NOTE | 2018-11-30 08:30 | NUR ---
DR. VÁZQUEZ AT BEDSIDE TO ASSESS PT. NOTIFIED MD THAT PT HAS INCONTINENCEURINE AND AT TIME HAVING DIFFICULT TIME TO VOID. ALSO, PT HAVING DIFFICULT TO EAT. ORDERS RECEIVED. CALL LIGHT IN REACH.
--- NOTE | 2018-11-30 09:51 | NUR ---
ASSESSMENT DONE . LUNGS SOUND CLEAR/DIMINISHED. PT IS A&O X1. PT DENIES PAIN AT THIS TIME. 02 AT 2L/MIN VIA NC. TELE IN PLACE. INSERTION OF PEARSON WITH STERILE TECHNIQUE AND PT TOLERATED WELL. YELLOW URINE NOTED. SAFETY PRECAUTIONS REINFORCED AND CALL LIGHT IN REACH.
--- NOTE | 2018-11-30 12:14 | NUR ---
PT STILL HAS THE SLURR SPEECH. PT ABLE TO TAKE PILLS WITH APPLESAUCE. PT STATED STILL DIFFICULT TO SWALLOW HER MEAL. PT REFUSED TO EAT HER LUNCH AT THIS TIME. PT DENIES ANY OTHER NEEDS AT THIS TIME. CALL LIGHT IN REACH.
--- NOTE | 2018-11-30 16:02 | NUR ---
PT IS RESTING IN BED AND DENIES NEEDS AT THIS TIME. BED ALARM IN PLACE FOR SAFETY. CALL LIGHT IN REACH.
[2018-12-01] VITALS (10 sets, daily range): BP systolic 143–183; BP diastolic 53–87
--- NOTE | 2018-12-01 00:14 | NUR ---
PATIENT RESTING IN BED AT THIS TIME WITH O2 VIA NASAL CANNULA IN PLACE. EASY TO AROUSE. PATIENT WITH NO COMPLAINTS AT THIS TIME. STILL WITH GARBLED/SLURRED SPEECH. TELE MONITOR IN PLACE. IV SITE TO LEFT HAND INTACT WITH IVF PATENT AND INFUSING ORDERED. SITE REMAINS HEALTHY AT THIS TIME. PEARSON PATENT AND DRAINING YELLOW URINE. SAFETY PRECAUTIONS REINFORCED. BED ALARM IN PLACE FOR PATIENT SAFETY. WILL CONT TO MONITOR.
--- NOTE | 2018-12-01 03:39 | NUR ---
PATIENT APPEARS SLEEPING AT THIS TIME WITH HOB ELEVATED AND EYES CLOSED. RESP ARE EVEN AND UNLABORED. O2 VIA NASAL CANNULA IN PLACE. TELE MONITOR IN PLACE. PEARSON PATENT AND DRAINING YELLOW URINE. IVF PATENT AND INFUSING AT 100CC/HR VIA LEFT HAND SITE. SITE REMAINS HEALTHY AT THIS TIME. CALL LIGHT IN REACH. WILL CONT TO MONITOR.
[2018-12-01 05:39] LABS: ALBUMIN 2.5 g/dL (3.2-5.0); BILIRUBIN, TOTAL 0.4 mg/dL (0.0-1.4); CREATININE 1.2 mg/dL (0.5-1.0); POTASSIUM 4.3 mmol/l (3.5-5.1); TOTAL PROTEIN 5.1 g/dL (6.3-8.2)
[2018-12-01 05:52] LABS: HEMOGLOBIN 9.7 g/dl (12.0-16.0); IMMATURE GRANULOCYTES 0.3 % (0.0-5.0); MEAN CELL VOLUME 93.5 fL CALC (80.0-100.0); MEAN CORPUSCULAR HGB 30.2 pG CALC (26.0-32.0); MEAN CORPUSCULAR HGB CONC 32.3 g/L CALC (32.0-36.0); NEUT# 5.36 thou/uL (2.00-7.15); RED BLOOD COUNT 3.21 mill/uL (4.20-5.60); RED CELL DISTRI WIDTH 13.9 % (11.5-15.5)
--- NOTE | 2018-12-01 07:10 | NUR ---
ASSESSMENT COMPLETED; NO DISTRESS NOTED; DENIES NEEDS/PAIN. VS OBTAINED; PEARSON CATHETER INTACT AND DRAINING AT GRAVITY LEVEL; ENCOURAGED TO CALL FOR ANY NEEDS; CALL LIGHT IS IN REACH; WILL CONTINUE TO MONITOR.
--- NOTE | 2018-12-01 08:19 | NUR ---
pt. pre- medicated with ordered ativan for mri.
--- NOTE | 2018-12-01 08:27 | NUR ---
pt. down to mri via w/c accompanied by volunteer.
--- NOTE | 2018-12-01 10:50 | NUR ---
PT. ASSSISTED BACK TO BED WITH MAX ASSISTANCE; IV TO RW IS LEAKING; REMOVED; CATHETER TIP INTACT; NEW IV STARTED TO RAC X1 ATTEMPT BY MICHAEL APONTE; CALL LIGHT IS IN REACH. WILL CONTINUE TO MONITOR.
--- NOTE | 2018-12-01 12:05 | NUR ---
NOTIFIED DR. VÁZQUEZ OF PT'S RR BEING ELEVATED AND SOUNDING CONGESTED; ORDERS RECEIVED TO STOP IVF;IVF STOPPED AT THIS TIME PER ORDER.
--- NOTE | 2018-12-01 12:40 | NUR ---
SPOKE WITH DR. VÁZQUEZ AND NOTIFIED HIM OF PT'S INCREASE WITH DIFFICULTY SWALLOWING AND CHOKING WHILE GIVING MEDICATIONS THIS AFTERNOON; NEW ORDERS FOR NPO UNTIL SWALLOW EVALUATION; NOTIFIED SPEECH THERAPY OF CONSULT; PER ST THEY MAY BE ABLE TO DO IT BY 2PM; UPDATED MD.
--- NOTE | 2018-12-01 14:31 | NUR ---
Mrs. Field is an 87 year old female who was admitted via ER with complaints of sudden onset R-side droop and weakness with chest pain. Diagnoses included UTI, Unstable Angina and Accelerated HTN. Problems list per ER Dept indicate presence of altered mental state, abnormal ECG and abnormal EKG, DVT of LLE, stage 3 kidney disease, CAD, COPD, diabetes, peptic ulcer disease, and polyarthritis. Upon PARTS DELIVERY DRIVER entering patient's room, she was noted to be in bed at approximately 20 degree angle with daughter at bedside. Patient was oriented to name, birthdate, and current month. Patient was raised to 90 degree angle. Oral mechanism examination revealed upper denture plate with natural lower teeth. Both patient and daughter indicated dentures fit well with no slipping. Obvious right side facial and labial droop noted. Patient able to purse lips but labial mobility and labial sounds were diminished. Lingual ROM and right side lingual sensation decreased. Alveolor ridge and hard palate could not be examined due to denture plate. Tongue bunching prevented soft palate examination. Diminished gag reflex. Patient was mouth breathing with oxygen delivery via nasal canula in place. Saliva management decreased with drooling on right side. Patient was given one sip of water and immediately began coughing. Multiple prompts to cough and swallow were necessary to eliminate "wet" vocal quality. Patient was presented with nectar liquid with no coughing but vocal quality was again "wet" with gurgling during speech observed. Repeated prompts to cough and swallow were required. Intake of bolus of applesauce indicated same symptoms. Patient began crying at one point and drooling was pronounced. Diagnostic recommendation is for patient to remain NPO with positioning at 90 degrees if given medications orally and for 30 minutes post administration. Continue to monitor breath sounds, oxygen saturation and temperature. Initial impression is oral/pharyngeal dysphagia with signs/symptoms of elevated risk for aspiration. Speech intelligibility was <25% for unfamiliar listener. PARTS DELIVERY DRIVER will return 12/02/18 in a.m. to repeat bedside swallow eval with notes to follow. Thank you for this referral. Jolene Wagner M.A., [facility]-PARTS DELIVERY DRIVER
--- NOTE | 2018-12-01 17:11 | NUR ---
DAUGHTER IS IN AT BEDSIDE; UPDATED ON POC; ENCOURAGED TO CALL FOR ANY NEEDS; CALL LIGHT IS IN REACH.
--- NOTE | 2018-12-01 17:56 | NUR ---
IN WITH DR. VÁZQUEZ AT BEDSIDE; DR. VÁZQUEZ UPDATED FAMILY AND PT. ON POC; PER MD HE WILL PLACE NEW ORDERS IN CPOE.
--- NOTE | 2018-12-01 18:28 | NUR ---
MEDICATED WITH ORDERED HYDRALAZINE; B/P 183/85; WILL CONTINUE TO MONITOR.
--- NOTE | 2018-12-01 19:30 | NUR ---
PATIENT RESTING IN BED AT THIS TIME WITH HOB ELEVATED. PATIENT STILL WITH GARBLED SPEECH-WANTS ASSIST WITH CHANGING TV CHANNEL AND WAS ASSISTED. PATIENT WITH RIGHT SIDE FACIAL DROOP AND LEFT EYE DROOP. PATIENT IS NPO SINCE . IV SITE TO RIGHT AC INTACT WITH IVF PATENT AND INFUSING AT 100CC/HR-SITE APPEARS HEALTHY AT THIS TIME. O2 VIA NASAL CANNULA IN PLACE. PEARSON PATENT AND DTRAINING YELLOW URINE. BED ALARM IN PLACE FOR PATIENT SAFETY. CALL LIGHT IN REACH. WILL CONT TO MONITOR.
--- NOTE | 2018-12-01 22:00 | NUR ---
2019 PM-PATIENT CALLED ON NURSE CALL LIGHT AND STAFF RESPONDED TO ROOM-PATIENT FOUND TO BE SOB WITH O2 VIA NASAL CANNULA IN PLACE AT 2LPM. PATIENT VERY ANXIOUS. VS TAKEN AND RECORDED-BP ELEVATED AT 176/87, HR-127, RESPS-30-34. O2 SAT 97% ON O2. SKIN IS WARM AND DRY. STILL HAVING DIFFICULTY WITH SPEECH. 2044PM-DR. VÁZQUEZ CALLED AND NEW ORDERS RECEIVED. VS RE-CHECK AND WERE BP-173/78, HR-115, RESP-32, O2 SAT OF 99%. WILL GIVE MEDS SALAS WHEN PROFILED ON EMAR. 2119- PATIENT MEDICATED WITH ALTIVAN 1MG IVP FOR ANXIETY AND WITH LABETALOL 10MG IVP FOR HTN. WILL MONITOR FOR EFFECT.
--- NOTE | 2018-12-01 22:00 | NUR ---
PATIENT CALMER AND RESTING WITH EYES CLOSED. RESP ARE DOWN TO 24 AT THIS TIME. HR-87, BP-149/75, O2 SAT AT 98. O2 VIA NASAL CANNULA IN PLACE. BED ALARM IN PLACE FOR PATIENT SAFETY. CALL LIGHT IN REACH. WILL CONT TO MONITOR.
[2018-12-02] VITALS (8 sets, daily range): BP systolic 126–165; BP diastolic 51–74
--- NOTE | 2018-12-02 02:10 | NUR ---
RESTING IN BED WITH EYES CLOSED AND HOB ELEVATED. IVF PATENT AND INFUSING AT 100CC/HR ORDERED. PEARSON PATENT AND DRAINING YELLOW URINE. TELE MONTITOR IN PLACE. O2 VIA NASAL CANNULA IN PLACE. BED ALARM REMAINS IN PLACE FOR PATIENT SAFETY. CALL LIGHT IN REACH, WILL CONT TO MONITOR.
[2018-12-02 05:33] LABS: HEMOGLOBIN 10.9 g/dl (12.0-16.0); IMMATURE GRANULOCYTES 0.3 % (0.0-5.0); MEAN CELL VOLUME 93.8 fL CALC (80.0-100.0); NEUT# 6.85 thou/uL (2.00-7.15); RED BLOOD COUNT 3.52 mill/uL (4.20-5.60); RED CELL DISTRI WIDTH 13.9 % (11.5-15.5)
[2018-12-02 05:58] LABS: BILIRUBIN, TOTAL 0.6 mg/dL (0.0-1.4); CREATININE 1.2 mg/dL (0.5-1.0); POTASSIUM 4.7 mmol/l (3.5-5.1); TOTAL PROTEIN 5.9 g/dL (6.3-8.2)
--- NOTE | 2018-12-02 07:00 | NUR ---
RECEIVED REPORT FROM NURSE LECHUGA, PATIENT SLEEPING IN BED, HOOKED TO O2 VIA NC AT 2LPM, EVEN UNLABORED BREATHING AT THIS TIME
--- NOTE | 2018-12-02 09:16 | NUR ---
Upon entering room Mrs. Field was sleeping with head of bed at approximately 40 degree angle. Right side facial droop. Did not rouse to verbal greeting but easily aroused to gentle touch to shoulder with verbal stimulus. Patient indicated she was cold and a blanket was added. Patient positioned at 90 degree angle. Appeared to be somnolent with need for multiple cues to wake. Patient nodded agreement to desire to try one teaspoon of thickened coffee. Two separate tablespoons of nectar coffee resulted in immediate coughing and gurgle with clearing between each bolus. Patient given one tsp of cream of wheat with same results as coffee. Patient verbally prompted to continue to cough and dry swallow to clear. From symptoms, it appears food/liquids are pooling at the point of the pyriform sinus but needs confirmation from MBSS. Recommend patient receive Modified Barium Swallow Study to accurately diagnose level and nature of dysphagia. Patient to remain NPO until MBSS completed. Jolene Wagner M.A., CCC-COCOA BEAN ROASTER HELPER
--- NOTE | 2018-12-02 10:00 | NUR ---
[id number] PT. GIVEN A SSE PER ORDER; PT. WAS UNABLE TO HOLD; CM WORKING ON ACCEPTING HOSPITAL FOR PT'S TRANSFER. ANKUSH THE DAUGHTER WAS UPDATED ON POC AND CM WORKING ON TRANSFER; VERBALIZES UNDERSTANDING.
--- NOTE | 2018-12-02 10:05 | NUR ---
PLACED NGT ON LEFT NARE, FR 14, LENGTH AT 55CM. PROCEDURE TOLERATED, CHECKED FOR PLACEMENT BY TWO NURSES.
--- NOTE | 2018-12-02 11:24 | NUR ---
Attempted treatment this am but nursing reported she had just had an enema and refused to get OOB to chair for them. She still needs to have Barium swallow study done. Will hold treatment at this time.
--- NOTE | 2018-12-02 11:25 | NUR ---
PER RADIOLOGY THEY ARE UNABLE TO DO BARIUM SWALLOW D/T PT. BEING UNABLE TO SWALLOW AND ALSO D/T NGT. NOTIFIED DR. VÁZQUEZ OF THIS AND HE DOES NOT WANT AN ALTERNATIVE IMAGING DONE AT THIS TIME; ALSO NOTIFIED HIM OF SSE GIVEN AND THAT PT. WAS UNABLE TO HOLD IT AND THAT ABD XRAY HAS NOT BEEN DONE YET; PER MD RECEIVED ORDER TO D/C ORDER FOR ABD XRAY; WILL CARRY THIS OUT.
--- NOTE | 2018-12-02 11:30 | NUR ---
PATIENT CURRENTLY RESTING IN BED, AROUSABLE DENIES PAIN OR DISCOMFORT AT THIS TIME, CALL LIGHT WITHIN REACH
--- NOTE | 2018-12-02 12:08 | NUR ---
REASSESSED B/P AND NOW IS 148/66; MEDICATED WITH SCHEDULED HYDRALAZINE; WILL CONTINUE TO MONITOR. DENIES FURTHER NEEDS; CALL LIGHT IS IN REACH. HOB ELEVATED AND NGT PATENT TO LEFT NARE.
--- NOTE | 2018-12-02 13:52 | NUR ---
PT WAS SEEN FOR FOR FUNCTIONAL ACTIVITY. SHE WAS SEEN SUPINE ON BED. PROVIDED VERBAL CUEING AND MOD A TO TURN ON HER SIDE IN PREPARATION TO ASSUME SITTING POSITION. PT THEN MAINTAINED STATIC STATIC STANDING WITH SBA. [id number]-KG-[id number] WITH MAX A OF 2 AND CONSTANT VERBAL AND TACTILE CUES. SHE MANAGED TO TAKE FEW STEPS ~5 STEPS FROM BED TO RECLINER WITH RW AND MAX A OF 2 AND VERBAL CUES. SOB WAS NOTED ALTHROUGHOUT THE ACTIVITY. PT WAS INSTRUCTED ON PROPER BREATHING UNTIL SOB RESOLVED. SHE WAS POSITIONED COMFORTABLY IN THE RECLINER WITH PILLOWS, LEG REST ELEVATED. CALL MONK AND FALL ALARM IN PLACE. NSG WAS IN THE ROOM. NO ADVERSE RXNS NOTED OR REPORTED AT THE END OF ACTIVITY. PT HAS SEVERE BALANCE IMPAIRMENT AND GENERALIZED WEAKNESS AND IS NOT SAFE FOR INDEP AMB. EVEN W/ AD.
--- NOTE | 2018-12-02 14:03 | NUR ---
PATIENTS TEMP WAS 100.2F, RENDERED WASH CLOTH PLACED ON FOREHEAD AND COLD PACKS
--- NOTE | 2018-12-02 14:42 | NUR ---
CALLED DR. VÁZQUEZ AROUND 1425 ABOUT PATIENT SLIGHT TEMP OF 100.2f, AND PAIN ON THROAT ORDERED TO GIVE TORADOL 10MG IM NOW X ONE TIME DOSE.
--- NOTE | 2018-12-02 15:48 | NUR ---
PATIENT CURRENTLY RESTING IN RECLINER, NGT CHECKED FOR PATENCY AND PLACEMENT. RECHECKED TEMP 99.7F.DAUGHTER AT BEDSIDE, CALL LIGHT AT REACH
--- NOTE | 2018-12-02 17:06 | NUR ---
PT RESTING IN BED, STATED RELIEF FROM PAIN, DUE INSULIN GIVEN, CALL LIGHT AT REACH
--- NOTE | 2018-12-02 18:48 | NUR ---
PT IN RESTING IN BED, EASY TO AROUSED, RHONCHI HEARD ON AUSCULTATION, REMAINS ON NPO. AWAITING FOR AVAILABLE BED AT [facility] FOR THE TRANSFER.
--- NOTE | 2018-12-02 19:30 | NUR ---
PATIENT RESTING IN BED AT THIS TIME WITH HOB ELEVATED. PATIENT IS NPO-HAS #14 GHANAIAN NG-TUBE TO LEFT NARE THAT IS CLAMPED. TELE MONITOR IN PLACE. IV SITE TO RIGHT AC INTACT WITH IVF D51/2NS PATENT AND INFUSING AT 100CC/HR. PEARSON PATENT AND DRAINING YELLOW URINE. TRANSFER PENDING FOR TRANSFER TO [facility] FOR NEURO EVAL. SPOKE WITH ANKUSH IN CASE MANAGEMENT WHO STATES THAT WE ARE STILL AWAITING BED ASSIGNMENT AT THIS TIME. BED ALARM IN PLACE FOR PATIENT SAFETY. CALL LIGHT IN REACH. WILL CONT TO MONITOR.
--- NOTE | 2018-12-02 21:20 | NUR ---
SPOKE WITH ERNESTO AT [facility] REGUARDING TRANSFER TO [facility] FOR NEURO CONSULT. STILL NO BED AVAILABLE AT THIS TIME. ERNESTO STATES THAT SHE WILL RETURN CALL SOON BED IS AVAILABLE. WILL CONT TO MONITOR.
--- NOTE | 2018-12-03 | NUR ---
STILL NO RETURN CALL FROM TRANSFER CENTER. PATIENT RESTING INTERMITTANTLY IN BED. PATIENT CONT TO HAVE GARBLED SPEECH. STILL NPO ORDERED WITH NG-TUBE TO LEFT NARE CLAMPED. IVF PATENT AND INFUSING VIA RIGHT AC SITE AT 100CC/HR. PEARSON PATENT AND DRAINING YELLOW URINE. BED ALARM IN PLACE FOR PATIENT SAFETY. HOB REMAINS ELEVATED FOR ASPIRATION PRECAUTIONS. CALL LIGHT IN REACH. WILL CONT TO MONITOR.
[2018-12-03 04:00] VITALS: BP 150/65
--- NOTE | 2018-12-03 04:24 | NUR ---
PATIENT RESTING IN BED WITH EYES CLOSED AND HOB ELEVATED. APPEARS SLEEPING AT THIS TIME. O2 VIA NASAL CANNULA IN PLACE. NG TUBE TO LEFT NARE CLAMPED. IVF D51/2NS PATENT AND INFUSING AT 100CC/HR. SITE REMAINS HEALTHY. PEARSON PATENT AND DRAINING YELLOW URINE. SPOKE WITH KAR AT [facility] AND STILL NO BED ASSIGNMENT AT THIS TIME. BED ALARM IN PLACE FOR PATIENT SAFETY. CALL LIGHT IN REACH. WILL CONT TO MONITOR.
[2018-12-03 07:15] VITALS: BP 132/60
--- NOTE | 2018-12-03 07:15 | NUR ---
PATIENT IV ON RAC IMNFILTRATED, NOTED SWELLING ON RT FOREARM, IV FLUIDS STOPPED, CATHETER REMOVED WAS INTACT. NURSE ANKUSH INSERTED NEW IV LINE ON LEFT HAND G24 HOOKED TO D5.1/2NACL X100CC/HR. WILL CONTINUE TO MONITOR. CALL LIGHT AT REACH.
--- NOTE | 2018-12-03 07:28 | NUR ---
RECEIVED REPORT FROM NURSE OSMAN, PT RESTING IN BED, DENIES PAIN, AROUSABLE, ON TELE, NGT ON LEFT NARE, REMAINS ON CONTINUOUS O2 AT 2LPM, PENDING TRANSFER. CALL LIGHT AT REACH
--- NOTE | 2018-12-03 07:30 | NUR ---
SEEN ON ROUNDS BY INFORMED THAT PATIENT WAS RESTLESS LAST NIGHT PER NIGHT NURSE, ORDERED TO GIVE ATIVAN 1MG IV X ONE TIME DOSE PRIOR TO TRANSFER.
--- NOTE | 2018-12-03 08:00 | NUR ---
PATIENT ALERT AND ORIENTED ABLE TO MAKE NEEDS KNOWN, DENIES PAIN AT THIS TIME, RHONCHI HEARD ON AUSCULTATION, MAINTAINED ON NPO PER ORDER. WILL CONTINUE TO MONITOR, BROOD HATCHERY MANAGER WORKING ON THE TRANSFER.
--- NOTE | 2018-12-03 12:00 | NUR ---
PATIENT RESTING IN BED, AROUSABLE, ABLE TO MAKE NEEDS KNOWN, NGT CHECKED FOR PATENCY, REMAINS ON O2 AT 2LPM CONTINUOUS. NOT IN DISTRESS. CALL LIGHT WITHIN REACH.
[2018-12-03 12:02] VITALS: BP 137/50
[2018-12-03 15:15] VITALS: BP 164/77
--- NOTE | 2018-12-03 16:00 | NUR ---
PATIENT RESTING IN BED, DENIES PAIN AND DISCOMFORTS, AWAITING FOR [facility] FOR THE TRANSFER
--- NOTE | 2018-12-03 18:22 | NUR ---
PATIENT DENIES PAIN OR DISCOMFORT, CALM, PATIENT WAS PICKED UP VIA [facility] AY 1715, AROUND 1815 NURSE TO NURSE REPORT GIVEN TO THERESE
== END 2018-12-03 17:15 | DRG 55 ==
LOC: ED 15:53 → ED-I 18:50 → ED 19:01 → MS2 19:02
PROVIDERS: Emergency Medicine; ADMIT Internal Medicine Geriatric Medicine; ATTEND Internal Medicine Geriatric Medicine
PROC: 0T9B70Z Drainage of Bladder with Drainage Device, Via Natural or Artificial Opening (ICD-10-PCS; principal; 2018-11-30)
DX: D32.0 Benign neoplasm of cerebral meninges (principal); N39.0 Urinary tract infection, site not specified; G93.40 Encephalopathy, unspecified; I10 Essential (primary) hypertension; J44.9 Chronic obstructive pulmonary disease, unspecified; I25.10 Atherosclerotic heart disease of native coronary artery without angina pectoris; E78.5 Hyperlipidemia, unspecified; F41.1 Generalized anxiety disorder; E03.9 Hypothyroidism, unspecified; E66.01 Morbid (severe) obesity due to excess calories; E11.40 Type 2 diabetes mellitus with diabetic neuropathy, unspecified; K27.9 Peptic ulcer, site unspecified, unspecified as acute or chronic, without hemorrhage or perforation; K21.9 Gastro-esophageal reflux disease without esophagitis; M19.019 Primary osteoarthritis, unspecified shoulder; F03.90 Unspecified dementia, unspecified severity, without behavioral disturbance, psychotic disturbance, mood disturbance, and anxiety; R13.10 Dysphagia, unspecified; E86.0 Dehydration; B96.4 Proteus (mirabilis) (morganii) as the cause of diseases classified elsewhere; Z68.34 Body mass index [BMI] 34.0-34.9, adult; Z91.81 History of falling; Z86.73 Personal history of transient ischemic attack (TIA), and cerebral infarction without residual deficits; Z90.49 Acquired absence of other specified parts of digestive tract
CPT/HCPCS: G0378; J1956; J2060

== ENCOUNTER 2019-03-04 16:40 | Inpatient (IN) | payer MEDICARE, OTHER, MEDICAID ==
[~2019-03-04] VITALS: Ht 157.5 cm; Wt 86.2 kg
[~2019-03-04 16:40] MED LIST changes: +GLIPIZIDE5 MG PO; +TRAMADOL HYDROC50 MG PO
[2019-03-04 17:43] LABS: URINE BILIRUBIN - DIPSTICK NEGATIVE (NEGATIVE); URINE BLOOD DIPSTICK TRACE-INTACT (NEGATIVE); URINE COLOR YELLOW; URINE GLUCOSE - DIPSTICK 250 mg/dL (NEGATIVE); URINE KETONE NEGATIVE (NEGATIVE); URINE NITRITE - DIPSTICK NEGATIVE (Negative); URINE PH 8.5 (4.5-8.0); URINE PROTEIN - DIPSTICK >=300 mg/dL (NEG-TRACE); URINE SPECIFIC GRAVITY 1.015; URINE UROBILINOGEN - DIPSTICK 0.2 E.U./dL (0.2)
[2019-03-04 17:44] LABS: URINE LEUK ESTERASE SMALL (NEGATIVE)
[2019-03-04 17:48] LABS: HEMATOCRIT 30.6 % (37.0-47.0); HEMOGLOBIN 9.3 g/dl (12.0-16.0); IMMATURE GRANULOCYTES 0.4 % (0.0-5.0); MEAN CELL VOLUME 97.8 fL CALC (80.0-100.0); MEAN CORPUSCULAR HGB 29.7 pG CALC (26.0-32.0); MEAN CORPUSCULAR HGB CONC 30.4 g/L CALC (32.0-36.0); NEUT# 7.89 thou/uL (2.00-7.15); RED BLOOD COUNT 3.13 mill/uL (4.20-5.60); RED CELL DISTRI WIDTH 14.3 % (11.5-15.5)
[2019-03-04] MEDS ORDERED: LEVEMIR FL100 UNIT/M SC ×2 (17:53→18:34)
[2019-03-04] MEDS ORDERED: METOPROL TAR25 MG PO ×2 (17:53→18:35)
[2019-03-04 17:54] LABS: URINE BACTERIA MANY hpf; URINE SQUAMOUS EPITHELIAL CELL MODERATE EPI/hpf (0-FEW); URINE YEAST MANY hpf
[2019-03-04 17:55] LABS: URINE TRIP PHOS CRYSTALS MANY lpf
[2019-03-04] MEDS ORDERED: DOCUSATE CALCI240 MG PO (18:03)
[2019-03-04] MEDS ORDERED: PREVACID30 M1 PO (18:03)
[2019-03-04 18:07] LABS: ALKALINE PHOSPHATASE 95 u/l (38-126); BILIRUBIN, TOTAL 0.3 mg/dL (0.0-1.4); BUN 69 mg/dL (8-23); BUN/CREATININE RATIO 75 (12-20 (CALC)); CHLORIDE 101 mmol/l (95-108); CREATININE 0.9 mg/dL (0.5-1.0); GFR 59 ML/MIN (>=60 (CALC)); GFR FOR AFR.AMER. > 60 ML/MIN (>=60 (CALC)); LIPASE 29 u/l (23-300); SODIUM 142 mmol/l (137-146)
[2019-03-04 18:08] LABS: ALBUMIN 3.8 g/dL (3.2-5.0); ANION GAP 15 (6-22 (CALC)); CARBON DIOXIDE 31 mmol/l (22-30); POTASSIUM 5.3 mmol/l (3.5-5.1); SGOT/AST 38 u/l (9-36); TOTAL PROTEIN 7.6 g/dL (6.3-8.2)
[2019-03-04] MEDS ORDERED: SURFAK240 MG/CAP PO (18:32)
[2019-03-04] MEDS ORDERED: PREVACID30 M2 PO (18:33)
[2019-03-04] MEDS ORDERED: PROVIGIL100 M1 (18:34)
[2019-03-04] MEDS ORDERED: MAGNESIUM OXID400 M3 (18:34)
[2019-03-04] MEDS ORDERED: FIASP FLEX100 UNIT/M (18:35)
[2019-03-04] MEDS ORDERED: CLONIDINE0.1 MG PO (18:35)
[2019-03-04 19:55] VITALS: BP 149/55
[2019-03-04 20:10] VITALS: BP 134/59
[2019-03-04 20:25] VITALS: BP 165/72
[2019-03-04 20:40] VITALS: BP 179/87
[2019-03-04 22:00] VITALS: BP 199/69
[2019-03-05] VITALS (34 sets, daily range): BP systolic 117–208; BP diastolic 40–92
[2019-03-05 05:53] LABS: HEMATOCRIT 26.4 % (37.0-47.0); HEMOGLOBIN 8.2 g/dl (12.0-16.0); IMMATURE GRANULOCYTES 0.2 % (0.0-5.0); MEAN CELL VOLUME 97.4 fL CALC (80.0-100.0); MEAN CORPUSCULAR HGB 30.3 pG CALC (26.0-32.0); MEAN CORPUSCULAR HGB CONC 31.1 g/L CALC (32.0-36.0); NEUT# 5.84 thou/uL (2.00-7.15); RED BLOOD COUNT 2.71 mill/uL (4.20-5.60); RED CELL DISTRI WIDTH 14.5 % (11.5-15.5)
[2019-03-05 06:17] LABS: ALKALINE PHOSPHATASE 78 u/l (38-126); AMYLASE 34 u/l (30-110); ANION GAP 10 (6-22 (CALC)); BILIRUBIN, TOTAL 0.3 mg/dL (0.0-1.4); BUN 64 mg/dL (8-23); BUN/CREATININE RATIO 74 (12-20 (CALC)); CARBON DIOXIDE 33 mmol/l (22-30); CHLORIDE 105 mmol/l (95-108); CREATININE 0.9 mg/dL (0.5-1.0); GFR 59 ML/MIN (>=60 (CALC)); GFR FOR AFR.AMER. > 60 ML/MIN (>=60 (CALC)); LIPASE 26 u/l (23-300); MAGNESIUM 2.3 mg/dL (1.6-2.3); POTASSIUM 4.9 mmol/l (3.5-5.1); SGOT/AST 30 u/l (9-36); SODIUM 143 mmol/l (137-146); TOTAL PROTEIN 6.2 g/dL (6.3-8.2)
[2019-03-06] VITALS (24 sets, daily range): BP systolic 136–193; BP diastolic 41–70
[2019-03-06 04:25] LABS: HEMATOCRIT 26.2 % (37.0-47.0); IMMATURE GRANULOCYTES 0.3 % (0.0-5.0); MEAN CELL VOLUME 99.2 fL CALC (80.0-100.0); MEAN CORPUSCULAR HGB 30.3 pG CALC (26.0-32.0); MEAN CORPUSCULAR HGB CONC 30.5 g/L CALC (32.0-36.0); NEUT# 7.18 thou/uL (2.00-7.15); RED BLOOD COUNT 2.64 mill/uL (4.20-5.60); RED CELL DISTRI WIDTH 14.5 % (11.5-15.5)
[2019-03-06 04:58] LABS: ALKALINE PHOSPHATASE 75 u/l (38-126); ANION GAP 11 (6-22 (CALC)); BILIRUBIN, TOTAL 0.2 mg/dL (0.0-1.4); BUN 54 mg/dL (8-23); BUN/CREATININE RATIO 63 (12-20 (CALC)); CARBON DIOXIDE 31 mmol/l (22-30); CHLORIDE 107 mmol/l (95-108); CREATININE 0.9 mg/dL (0.5-1.0); GFR 59 ML/MIN (>=60 (CALC)); GFR FOR AFR.AMER. > 60 ML/MIN (>=60 (CALC)); MAGNESIUM 2.2 mg/dL (1.6-2.3); POTASSIUM 4.9 mmol/l (3.5-5.1); SGOT/AST 31 u/l (9-36); SODIUM 144 mmol/l (137-146); TOTAL PROTEIN 6.2 g/dL (6.3-8.2)
[2019-03-07] VITALS (24 sets, daily range): BP systolic 119–216; BP diastolic 54–104
[2019-03-07 04:44] LABS: HEMATOCRIT 26.6 % (37.0-47.0); HEMOGLOBIN 7.9 g/dl (12.0-16.0); IMMATURE GRANULOCYTES 0.2 % (0.0-5.0); MEAN CELL VOLUME 100.8 fL CALC (80.0-100.0); MEAN CORPUSCULAR HGB 29.9 pG CALC (26.0-32.0); MEAN CORPUSCULAR HGB CONC 29.7 g/L CALC (32.0-36.0); NEUT# 5.11 thou/uL (2.00-7.15); RED BLOOD COUNT 2.64 mill/uL (4.20-5.60); RED CELL DISTRI WIDTH 14.5 % (11.5-15.5)
[2019-03-07 04:49] LABS: ALBUMIN 2.9 g/dL (3.2-5.0); ALKALINE PHOSPHATASE 72 u/l (38-126); ANION GAP 11 (6-22 (CALC)); BILIRUBIN, TOTAL 0.2 mg/dL (0.0-1.4); BUN 52 mg/dL (8-23); BUN/CREATININE RATIO 65 (12-20 (CALC)); CARBON DIOXIDE 31 mmol/l (22-30); CHLORIDE 107 mmol/l (95-108); CREATININE 0.8 mg/dL (0.5-1.0); GFR > 60 ML/MIN (>=60 (CALC)); GFR FOR AFR.AMER. > 60 ML/MIN (>=60 (CALC)); MAGNESIUM 2.1 mg/dL (1.6-2.3); POTASSIUM 5.1 mmol/l (3.5-5.1); SGOT/AST 30 u/l (9-36); SODIUM 143 mmol/l (137-146); TOTAL PROTEIN 6.2 g/dL (6.3-8.2)
[2019-03-07 05:19] LABS: TSH, 3RD GENERATION 0.68 uIU/mL (0.47 - 4.68)
[2019-03-08] VITALS (17 sets, daily range): BP systolic 61–225; BP diastolic 53–107
[2019-03-09] VITALS (17 sets, daily range): BP systolic 124–184; BP diastolic 52–84
[2019-03-10] VITALS (22 sets, daily range): BP systolic 53–175; BP diastolic 41–79
[2019-03-10 05:38] LABS: HEMATOCRIT 27.1 % (37.0-47.0); HEMOGLOBIN 8.1 g/dl (12.0-16.0); IMMATURE GRANULOCYTES 0.4 % (0.0-5.0); MEAN CELL VOLUME 99.6 fL CALC (80.0-100.0); MEAN CORPUSCULAR HGB 29.8 pG CALC (26.0-32.0); MEAN CORPUSCULAR HGB CONC 29.9 g/L CALC (32.0-36.0); NEUT# 7.25 thou/uL (2.00-7.15); RED BLOOD COUNT 2.72 mill/uL (4.20-5.60); RED CELL DISTRI WIDTH 14.7 % (11.5-15.5)
[2019-03-10 06:20] LABS: ALBUMIN 2.8 g/dL (3.2-5.0); ALKALINE PHOSPHATASE 75 u/l (38-126); ANION GAP 10 (6-22 (CALC)); BILIRUBIN, TOTAL 0.2 mg/dL (0.0-1.4); BUN 50 mg/dL (8-23); BUN/CREATININE RATIO 63 (12-20 (CALC)); CARBON DIOXIDE 30 mmol/l (22-30); CHLORIDE 108 mmol/l (95-108); CREATININE 0.8 mg/dL (0.5-1.0); GFR > 60 ML/MIN (>=60 (CALC)); GFR FOR AFR.AMER. > 60 ML/MIN (>=60 (CALC)); MAGNESIUM 2.2 mg/dL (1.6-2.3); SGOT/AST 33 u/l (9-36); SODIUM 143 mmol/l (137-146); TOTAL PROTEIN 5.9 g/dL (6.3-8.2)
[2019-03-10 06:26] LABS: POTASSIUM 5.2 mmol/l (3.5-5.1)
[2019-03-11] VITALS (19 sets, daily range): BP systolic 101–189; BP diastolic 40–82
[2019-03-11 05:22] LABS: HEMATOCRIT 27.1 % (37.0-47.0); HEMOGLOBIN 8.1 g/dl (12.0-16.0); IMMATURE GRANULOCYTES 0.3 % (0.0-5.0); MEAN CELL VOLUME 100.4 fL CALC (80.0-100.0); MEAN CORPUSCULAR HGB CONC 29.9 g/L CALC (32.0-36.0); NEUT# 6.55 thou/uL (2.00-7.15); RED BLOOD COUNT 2.7 mill/uL (4.20-5.60); RED CELL DISTRI WIDTH 14.6 % (11.5-15.5)
[2019-03-11 06:41] LABS: ALBUMIN 2.6 g/dL (3.2-5.0); ALKALINE PHOSPHATASE 71 u/l (38-126); BILIRUBIN, TOTAL 0.3 mg/dL (0.0-1.4); BUN 54 mg/dL (8-23); BUN/CREATININE RATIO 61 (12-20 (CALC)); CARBON DIOXIDE 31 mmol/l (22-30); CHLORIDE 108 mmol/l (95-108); CREATININE 0.9 mg/dL (0.5-1.0); GFR 59 ML/MIN (>=60 (CALC)); GFR FOR AFR.AMER. > 60 ML/MIN (>=60 (CALC)); MAGNESIUM 2.2 mg/dL (1.6-2.3); SGOT/AST 30 u/l (9-36); SODIUM 142 mmol/l (137-146); TOTAL PROTEIN 5.5 g/dL (6.3-8.2)
[2019-03-11 06:50] LABS: ANION GAP 9 (6-22 (CALC)); POTASSIUM 5.6 mmol/l (3.5-5.1)
[2019-03-12] VITALS (17 sets, daily range): BP systolic 96–182; BP diastolic 35–100
[2019-03-12 05:18] LABS: HEMATOCRIT 25.2 % (37.0-47.0); HEMOGLOBIN 7.6 g/dl (12.0-16.0); IMMATURE GRANULOCYTES 1.1 % (0.0-5.0); MEAN CORPUSCULAR HGB 30.2 pG CALC (26.0-32.0); MEAN CORPUSCULAR HGB CONC 30.2 g/L CALC (32.0-36.0); NEUT# 4.85 thou/uL (2.00-7.15); RED BLOOD COUNT 2.52 mill/uL (4.20-5.60); RED CELL DISTRI WIDTH 14.5 % (11.5-15.5)
[2019-03-12 05:37] LABS: ALBUMIN 2.5 g/dL (3.2-5.0); ALKALINE PHOSPHATASE 72 u/l (38-126); ANION GAP 9 (6-22 (CALC)); BILIRUBIN, TOTAL 0.2 mg/dL (0.0-1.4); BUN 55 mg/dL (8-23); BUN/CREATININE RATIO 62 (12-20 (CALC)); CARBON DIOXIDE 31 mmol/l (22-30); CHLORIDE 106 mmol/l (95-108); CREATININE 0.9 mg/dL (0.5-1.0); GFR 59 ML/MIN (>=60 (CALC)); GFR FOR AFR.AMER. > 60 ML/MIN (>=60 (CALC)); MAGNESIUM 2.2 mg/dL (1.6-2.3); SGOT/AST 29 u/l (9-36); SODIUM 140 mmol/l (137-146); TOTAL PROTEIN 5.4 g/dL (6.3-8.2)
[2019-03-12 05:58] LABS: POTASSIUM 5.7 mmol/l (3.5-5.1)
[2019-03-13] VITALS: BP 141/63
[2019-03-13 04:15] VITALS: BP 173/76
[2019-03-13 05:45] VITALS: BP 157/72
[2019-03-13 05:45] LABS: HEMATOCRIT 30.5 % (37.0-47.0); HEMOGLOBIN 9.2 g/dl (12.0-16.0); IMMATURE GRANULOCYTES 0.4 % (0.0-5.0); MEAN CELL VOLUME 99.3 fL CALC (80.0-100.0); MEAN CORPUSCULAR HGB CONC 30.2 g/L CALC (32.0-36.0); NEUT# 5.53 thou/uL (2.00-7.15); RED BLOOD COUNT 3.07 mill/uL (4.20-5.60); RED CELL DISTRI WIDTH 14.6 % (11.5-15.5)
[2019-03-13 06:08] LABS: ALKALINE PHOSPHATASE 78 u/l (38-126); ANION GAP 11 (6-22 (CALC)); BILIRUBIN, TOTAL 0.4 mg/dL (0.0-1.4); BUN 57 mg/dL (8-23); BUN/CREATININE RATIO 75 (12-20 (CALC)); CARBON DIOXIDE 26 mmol/l (22-30); CHLORIDE 109 mmol/l (95-108); CREATININE 0.8 mg/dL (0.5-1.0); GFR > 60 ML/MIN (>=60 (CALC)); GFR FOR AFR.AMER. > 60 ML/MIN (>=60 (CALC)); MAGNESIUM 2.1 mg/dL (1.6-2.3); SGOT/AST 38 u/l (9-36); SODIUM 140 mmol/l (137-146); TOTAL PROTEIN 6.2 g/dL (6.3-8.2)
[2019-03-13 06:09] LABS: POTASSIUM 5.7 mmol/l (3.5-5.1)
[2019-03-13 07:49] VITALS: BP 127/61
[2019-03-13 13:51] LABS: URINE BILIRUBIN - DIPSTICK NEGATIVE (NEGATIVE); URINE BLOOD DIPSTICK SMALL (NEGATIVE); URINE COLOR YELLOW; URINE GLUCOSE - DIPSTICK 250 mg/dL (NEGATIVE); URINE KETONE NEGATIVE (NEGATIVE); URINE LEUK ESTERASE SMALL (Negative); URINE NITRITE - DIPSTICK NEGATIVE (Negative); URINE PROTEIN - DIPSTICK 100 mg/dL (NEG-TRACE); URINE UROBILINOGEN - DIPSTICK 0.2 E.U./dL (0.2)
[2019-03-13 13:53] LABS: URINE BACTERIA MODERATE hpf; URINE CLARITY CLOUDY; URINE EPITHELIAL CELLS FEW EPI/hpf (0-FEW); URINE WBC 20-50 WBC/hpf (0-5)
[2019-03-13 18:45] VITALS: BP 186/81
[2019-03-14 03:34] VITALS: BP 149/62
[2019-03-14 04:54] LABS: HEMOGLOBIN 7.4 g/dl (12.0-16.0); IMMATURE GRANULOCYTES 0.4 % (0.0-5.0); MEAN CELL VOLUME 99.2 fL CALC (80.0-100.0); MEAN CORPUSCULAR HGB 30.2 pG CALC (26.0-32.0); MEAN CORPUSCULAR HGB CONC 30.5 g/L CALC (32.0-36.0); NEUT# 4.75 thou/uL (2.00-7.15); RED BLOOD COUNT 2.45 mill/uL (4.20-5.60); RED CELL DISTRI WIDTH 14.5 % (11.5-15.5)
[2019-03-14 05:00] LABS: HEMATOCRIT 24.3 % (37.0-47.0)
[2019-03-14 05:19] LABS: ALBUMIN 2.5 g/dL (3.2-5.0); ALKALINE PHOSPHATASE 70 u/l (38-126); BILIRUBIN, TOTAL 0.2 mg/dL (0.0-1.4); BUN 55 mg/dL (8-23); BUN/CREATININE RATIO 65 (12-20 (CALC)); CARBON DIOXIDE 31 mmol/l (22-30); CHLORIDE 108 mmol/l (95-108); CREATININE 0.8 mg/dL (0.5-1.0); GFR > 60 ML/MIN (>=60 (CALC)); GFR FOR AFR.AMER. > 60 ML/MIN (>=60 (CALC)); MAGNESIUM 2.1 mg/dL (1.6-2.3); SGOT/AST 30 u/l (9-36); SODIUM 141 mmol/l (137-146); TOTAL PROTEIN 5.4 g/dL (6.3-8.2)
[2019-03-14 05:42] LABS: ANION GAP 7 (6-22 (CALC)); POTASSIUM 5.2 mmol/l (3.5-5.1)
[2019-03-14 08:09] VITALS: BP 169/74
[2019-03-14 14:45] VITALS: BP 165/66
[2019-03-14 18:40] VITALS: BP 132/60
[2019-03-15 03:55] VITALS: BP 139/57
[2019-03-15 04:35] LABS: HEMATOCRIT 23.7 % (37.0-47.0); HEMOGLOBIN 7.1 g/dl (12.0-16.0); RED BLOOD COUNT 2.37 mill/uL (4.20-5.60); RED CELL DISTRI WIDTH 14.6 % (11.5-15.5)
[2019-03-15 04:49] LABS: ANION GAP 10 (6-22 (CALC)); BUN 49 mg/dL (8-23); BUN/CREATININE RATIO 63 (12-20 (CALC)); CARBON DIOXIDE 28 mmol/l (22-30); CHLORIDE 109 mmol/l (95-108); CREATININE 0.8 mg/dL (0.5-1.0); GFR > 60 ML/MIN (>=60 (CALC)); GFR FOR AFR.AMER. > 60 ML/MIN (>=60 (CALC)); POTASSIUM 4.8 mmol/l (3.5-5.1); SODIUM 142 mmol/l (137-146)
[2019-03-15 09:29] VITALS: BP 186/82
[2019-03-15 16:11] VITALS: BP 148/77
[2019-03-15 21:45] VITALS: BP 176/78
[2019-03-16 04:08] VITALS: BP 173/76
[2019-03-16 07:54] VITALS: BP 155/53
[2019-03-16 17:07] VITALS: BP 187/92
[2019-03-16 18:22] VITALS: BP 162/63
[2019-03-17] VITALS: BP 142/64
[2019-03-17 04:45] VITALS: BP 144/72
[2019-03-17 08:23] VITALS: BP 143/62
[2019-03-17 15:40] VITALS: BP 156/66
[2019-03-17 19:24] VITALS: BP 152/55
[2019-03-18 04:20] VITALS: BP 159/63
[2019-03-18 08:32] VITALS: BP 182/71
[2019-03-18 17:18] VITALS: BP 154/59
[2019-03-18 19:56] VITALS: BP 159/68
[2019-03-19 04:23] VITALS: BP 203/78
[2019-03-19 07:20] VITALS: BP 144/61
[2019-03-19 08:19] VITALS: BP 177/83
[2019-03-19 11:48] VITALS: BP 166/56
[2019-03-19 15:00] VITALS: BP 130/67
[2019-03-19 19:12] VITALS: BP 113/46
[2019-03-20 03:53] VITALS: BP 169/64
[2019-03-20 05:36] LABS: HEMATOCRIT 25.5 % (37.0-47.0); HEMOGLOBIN 7.8 g/dl (12.0-16.0); IMMATURE GRANULOCYTES 0.3 % (0.0-5.0); MEAN CELL VOLUME 98.8 fL CALC (80.0-100.0); MEAN CORPUSCULAR HGB 30.2 pG CALC (26.0-32.0); MEAN CORPUSCULAR HGB CONC 30.6 g/L CALC (32.0-36.0); NEUT# 4.13 thou/uL (2.00-7.15); RED BLOOD COUNT 2.58 mill/uL (4.20-5.60); RED CELL DISTRI WIDTH 14.6 % (11.5-15.5)
[2019-03-20 06:19] LABS: ALBUMIN 2.5 g/dL (3.2-5.0); ALKALINE PHOSPHATASE 69 u/l (38-126); ANION GAP 9 (6-22 (CALC)); BILIRUBIN, TOTAL 0.2 mg/dL (0.0-1.4); BUN 48 mg/dL (8-23); BUN/CREATININE RATIO 59 (12-20 (CALC)); CARBON DIOXIDE 31 mmol/l (22-30); CHLORIDE 104 mmol/l (95-108); CREATININE 0.8 mg/dL (0.5-1.0); GFR > 60 ML/MIN (>=60 (CALC)); GFR FOR AFR.AMER. > 60 ML/MIN (>=60 (CALC)); MAGNESIUM 1.9 mg/dL (1.6-2.3); POTASSIUM 5.1 mmol/l (3.5-5.1); SGOT/AST 26 u/l (9-36); SODIUM 139 mmol/l (137-146); TOTAL PROTEIN 5.3 g/dL (6.3-8.2)
[2019-03-20 08:50] VITALS: BP 171/74
[2019-03-20 11:35] VITALS: BP 149/60
[2019-03-20 15:10] VITALS: BP 197/78
[2019-03-20 16:23] VITALS: BP 167/76
[2019-03-20 20:20] VITALS: BP 178/60
[2019-03-21 04:09] VITALS: BP 164/70
[2019-03-21 08:55] VITALS: BP 183/64
[2019-03-21 17:06] VITALS: BP 163/68
[2019-03-21 19:37] VITALS: BP 158/66
[2019-03-22 04:15] VITALS: BP 150/58
[2019-03-22 08:20] VITALS: BP 169/53
[2019-03-22 16:42] VITALS: BP 173/69
[2019-03-22 19:24] VITALS: BP 128/52
[2019-03-23 04:00] VITALS: BP 175/65
[2019-03-23 08:00] VITALS: BP 141/62
[2019-03-23 18:36] VITALS: BP 129/70
[2019-03-23 19:00] VITALS: BP 135/55
[2019-03-24 03:30] VITALS: BP 147/67
[2019-03-24 07:50] VITALS: BP 167/55
[2019-03-24 11:38] VITALS: BP 173/62
[2019-03-24 13:20] VITALS: BP 162/58
[2019-03-24 15:37] VITALS: BP 159/52
[2019-03-24 19:30] VITALS: BP 152/57
[2019-03-25 04:30] VITALS: BP 119/59
[2019-03-25 07:56] VITALS: BP 128/47
[2019-03-25 10:10] VITALS: BP 145/55
[2019-03-25 16:00] VITALS: BP 150/63
[2019-03-25 19:50] VITALS: BP 162/81
[2019-03-26 00:20] VITALS: BP 154/56
[2019-03-26 04:40] VITALS: BP 184/68
[2019-03-26 06:50] VITALS: BP 148/47
[2019-03-26 08:17] VITALS: BP 141/64
[2019-03-26 16:12] VITALS: BP 118/54
[2019-03-26 19:37] VITALS: BP 154/58
[2019-03-27 05:47] VITALS: BP 152/65
[2019-03-27 08:20] VITALS: BP 149/53
[2019-03-27 16:40] VITALS: BP 140/65
[2019-03-27 20:34] VITALS: BP 195/72
[2019-03-27 23:00] VITALS: BP 180/76
[2019-03-28 00:31] VITALS: BP 184/65
[2019-03-28 04:13] VITALS: BP 152/54
[2019-03-28 08:40] VITALS: BP 142/60
[2019-03-28 14:30] VITALS: BP 121/60
[2019-03-28 18:55] VITALS: BP 146/61
[2019-03-29 04:10] VITALS: BP 155/57
[2019-03-29 08:32] VITALS: BP 188/82
[2019-03-29 13:42] VITALS: BP 155/67
[2019-03-29 14:40] VITALS: BP 150/60
[2019-03-29 19:10] VITALS: BP 174/82
[2019-03-30 04:30] VITALS: BP 158/67
[2019-03-30 08:11] VITALS: BP 168/53
[2019-03-30 16:55] VITALS: BP 153/64
[2019-03-30 19:30] VITALS: BP 179/76
[2019-03-30 23:00] VITALS: BP 175/71
[2019-03-31 00:07] VITALS: BP 153/64
[2019-03-31 03:45] VITALS: BP 147/65
[2019-03-31 08:14] VITALS: BP 157/56
[2019-03-31 15:53] VITALS: BP 133/52
[2019-03-31 19:27] VITALS: BP 132/54
[2019-04-01 04:00] VITALS: BP 166/57
[2019-04-01 04:40] VITALS: BP 159/54
[2019-04-01 08:06] VITALS: BP 175/75
[2019-04-01 13:22] LABS: HEMATOCRIT 26.6 % (37.0-47.0); HEMOGLOBIN 8.4 g/dl (12.0-16.0); MEAN CELL VOLUME 96.7 fL CALC (80.0-100.0); MEAN CORPUSCULAR HGB 30.5 pG CALC (26.0-32.0); MEAN CORPUSCULAR HGB CONC 31.6 g/L CALC (32.0-36.0); RED BLOOD COUNT 2.75 mill/uL (4.20-5.60); RED CELL DISTRI WIDTH 13.6 % (11.5-15.5)
[2019-04-01 14:07] VITALS: BP 158/68
[2019-04-01 16:53] VITALS: BP 157/52
[2019-04-01 19:00] VITALS: BP 159/60
[2019-04-02] VITALS (7 sets, daily range): BP systolic 100–173; BP diastolic 61–80
[2019-04-03 00:05] VITALS: BP 150/63
[2019-04-03 04:15] VITALS: BP 123/51
[2019-04-03 08:00] VITALS: BP 171/59
[2019-04-03 16:08] VITALS: BP 154/54
[2019-04-03 19:47] VITALS: BP 158/63
[2019-04-04 00:08] VITALS: BP 150/55
[2019-04-04 04:15] VITALS: BP 157/63
[2019-04-04 08:00] VITALS: BP 153/45
[2019-04-04 16:18] VITALS: BP 149/68
[2019-04-04 20:05] VITALS: BP 139/59
[2019-04-05 04:35] VITALS: BP 154/64
[2019-04-05 08:45] VITALS: BP 144/86
[2019-04-05 16:00] VITALS: BP 135/44
[2019-04-05 19:43] VITALS: BP 169/65
[2019-04-06 04:37] VITALS: BP 186/71
[2019-04-06 08:23] VITALS: BP 131/50
[2019-04-06 12:00] VITALS: BP 167/46
[2019-04-06 16:02] VITALS: BP 158/63
[2019-04-06 19:30] VITALS: BP 151/58
[2019-04-07 04:47] VITALS: BP 107/47
[2019-04-07 08:00] VITALS: BP 126/39
[2019-04-07 15:15] VITALS: BP 139/44
[2019-04-07 19:00] VITALS: BP 151/67
[2019-04-08 05:51] VITALS: BP 128/61
[2019-04-08 08:57] VITALS: BP 149/60
[2019-04-08 16:00] VITALS: BP 159/56
[2019-04-08 19:45] VITALS: BP 161/48
[2019-04-09 04:39] VITALS: BP 156/48
[2019-04-09 07:30] LABS: HEMOGLOBIN 8.9 g/dl (12.0-16.0); MEAN CELL VOLUME 95.6 fL CALC (80.0-100.0); MEAN CORPUSCULAR HGB 30.4 pG CALC (26.0-32.0); MEAN CORPUSCULAR HGB CONC 31.8 g/L CALC (32.0-36.0); RED BLOOD COUNT 2.93 mill/uL (4.20-5.60); RED CELL DISTRI WIDTH 13.6 % (11.5-15.5)
[2019-04-09 07:40] LABS: BUN 52 mg/dL (8-23); BUN/CREATININE RATIO 67 (12-20 (CALC)); CARBON DIOXIDE 31 mmol/l (22-30); CHLORIDE 100 mmol/l (95-108); CREATININE 0.8 mg/dL (0.5-1.0); GFR > 60 ML/MIN (>=60 (CALC)); GFR FOR AFR.AMER. > 60 ML/MIN (>=60 (CALC)); SODIUM 136 mmol/l (137-146)
[2019-04-09 07:49] LABS: ANION GAP 10 (6-22 (CALC)); POTASSIUM 5.2 mmol/l (3.5-5.1)
[2019-04-09 09:24] VITALS: BP 174/74
[2019-04-09 16:07] VITALS: BP 111/52
[2019-04-09 19:05] VITALS: BP 152/58
[2019-04-10 04:30] VITALS: BP 156/62
[2019-04-10 08:32] VITALS: BP 158/64
[2019-04-10 15:05] VITALS: BP 137/56
[2019-04-10 18:52] VITALS: BP 147/65
[2019-04-11 04:08] VITALS: BP 156/64
[2019-04-11 14:20] VITALS: BP 131/50
[2019-04-11 18:50] VITALS: BP 150/64
[2019-04-12 04:41] VITALS: BP 200/88
[2019-04-12 05:34] VITALS: BP 133/58
[2019-04-12 07:15] VITALS: BP 125/58
[2019-04-12 17:21] VITALS: BP 102/42
[2019-04-12 21:09] VITALS: BP 160/67
[2019-04-13 04:47] VITALS: BP 152/69
[2019-04-13 07:25] VITALS: BP 136/65
[2019-04-13 16:08] VITALS: BP 148/70
[2019-04-13 19:11] VITALS: BP 187/96
[2019-04-14 05:00] VITALS: BP 167/71
[2019-04-14 07:56] VITALS: BP 104/51
[2019-04-14 14:25] VITALS: BP 134/55
[2019-04-14 18:55] VITALS: BP 143/58
[2019-04-15 04:14] VITALS: BP 141/59
[2019-04-15 08:14] VITALS: BP 196/81
[2019-04-15 10:27] VITALS: BP 137/56
[2019-04-15 15:57] VITALS: BP 186/75
[2019-04-15 18:06] VITALS: BP 165/60
[2019-04-15 19:01] VITALS: BP 156/68
[2019-04-16 04:24] VITALS: BP 133/40
[2019-04-16 07:53] VITALS: BP 165/62
[2019-04-16 14:37] VITALS: BP 150/51
[2019-04-16 19:05] VITALS: BP 146/59
[2019-04-17 03:45] VITALS: BP 174/71
[2019-04-17 09:35] VITALS: BP 183/50
[2019-04-17 14:11] VITALS: BP 151/66
[2019-04-17 19:10] VITALS: BP 166/62
[2019-04-18 01:05] VITALS: BP 190/87
[2019-04-18 02:23] VITALS: BP 153/61
[2019-04-18 08:07] VITALS: BP 168/56
[2019-04-18 16:00] VITALS: BP 134/53
[2019-04-18 19:55] VITALS: BP 166/55
[2019-04-18 23:41] VITALS: BP 158/70
[2019-04-19 04:08] VITALS: BP 144/56
[2019-04-19 08:30] VITALS: BP 145/48
[2019-04-19 16:00] VITALS: BP 153/53
[2019-04-19 19:22] VITALS: BP 120/59
[2019-04-20 04:13] VITALS: BP 191/78
[2019-04-20 09:15] VITALS: BP 144/66
[2019-04-20 14:42] VITALS: BP 135/50
[2019-04-20 19:00] VITALS: BP 130/69
[2019-04-21 04:31] VITALS: BP 139/62
[2019-04-21 08:05] VITALS: BP 155/45
[2019-04-21 14:10] VITALS: BP 147/57
[2019-04-21 19:19] VITALS: BP 152/70
[2019-04-22 04:12] VITALS: BP 199/96
[2019-04-22 04:13] VITALS: BP 172/90
[2019-04-22 05:36] VITALS: BP 154/76
[2019-04-22 09:27] VITALS: BP 152/59
[2019-04-22 15:59] VITALS: BP 163/63
[2019-04-22 19:05] VITALS: BP 133/58
[2019-04-23 04:03] VITALS: BP 139/59
[2019-04-23 09:54] VITALS: BP 156/65
[2019-04-23 15:36] VITALS: BP 153/59
[2019-04-23 20:44] VITALS: BP 177/61
[2019-04-23 21:30] VITALS: BP 135/62
[2019-04-24 05:49] VITALS: BP 158/56
[2019-04-24 07:42] VITALS: BP 193/79
[2019-04-24 15:45] VITALS: BP 159/66
[2019-04-24 19:21] VITALS: BP 134/51
[2019-04-25 04:09] VITALS: BP 167/76
[2019-04-25 08:41] VITALS: BP 120/55
[2019-04-25 14:15] VITALS: BP 118/63
[2019-04-25 19:06] VITALS: BP 154/73
[2019-04-26 04:33] VITALS: BP 142/61
[2019-04-26 07:37] VITALS: BP 159/50
[2019-04-26 15:20] VITALS: BP 141/56
[2019-04-26 19:14] VITALS: BP 158/72
[2019-04-27 04:00] VITALS: BP 165/76
[2019-04-27 07:35] VITALS: BP 145/55
[2019-04-27 15:50] VITALS: BP 143/64
[2019-04-27 19:50] VITALS: BP 167/76
[2019-04-28 05:08] VITALS: BP 170/70
[2019-04-28 08:17] VITALS: BP 149/50
[2019-04-28] MEDS ORDERED: AZTREONAM1 GM IV (12:45)
[2019-04-28] MEDS ORDERED: BACITRACIN500 UNIT/G TOP (12:45)
[2019-04-28] MEDS ORDERED: LOPRESSOR25 MG PO (12:45)
[2019-04-28] MEDS ORDERED: NOVOLOG100 UNIT/M SC (12:45)
[2019-04-28] MEDS ORDERED: ATORVASTATIN CA40 MG PO (12:45)
[2019-04-28] MEDS ORDERED: LACTULOSE10 GM/15 M PO (12:45)
[2019-04-28] MEDS ORDERED: LEVEMIR100 UNIT/M SC (12:45)
[2019-04-28] MEDS ORDERED: RANITIDINE HCL150 MG PO (12:45)
[2019-04-28] MEDS ORDERED: TRANSDERM-1 MG/3 DAY TD (12:45)
[2019-04-28] MEDS ORDERED: catapres PO (12:45)
[2019-04-28] MEDS ORDERED: IPRATROPIU0.5 MG/3 M IN (12:45)
[2019-04-28] MEDS ORDERED: LISINOPRIL20 M1 PO (12:45)
[2019-04-28 15:22] VITALS: BP 151/50
== END 2019-04-28 19:08 | DRG 177 ==
LOC: ED 16:40 → ED-I 18:06 → ED 18:51 → ICU 18:52 → MS2 03-05 15:39
PROVIDERS: Family Medicine; Internal Medicine; Nurse Practitioner Family; ADMIT Internal Medicine Nephrology; ATTEND Internal Medicine Nephrology
PROC: 02HV33Z Insertion of Infusion Device into Superior Vena Cava, Percutaneous Approach (ICD-10-PCS; principal; 2019-03-05)
PROC: B518ZZA Fluoroscopy of Superior Vena Cava, Guidance (ICD-10-PCS; 2019-03-05)
DX: J69.0 Pneumonitis due to inhalation of food and vomit (principal); L89.154 Pressure ulcer of sacral region, stage 4; E43 Unspecified severe protein-calorie malnutrition; E87.3 Alkalosis; E87.2 Acidosis; N39.0 Urinary tract infection, site not specified; I12.9 Hypertensive chronic kidney disease with stage 1 through stage 4 chronic kidney disease, or unspecified chronic kidney disease; E11.22 Type 2 diabetes mellitus with diabetic chronic kidney disease; N18.3 Chronic kidney disease, stage 3 (moderate); E11.40 Type 2 diabetes mellitus with diabetic neuropathy, unspecified; I25.10 Atherosclerotic heart disease of native coronary artery without angina pectoris; M15.9 Polyosteoarthritis, unspecified; K21.9 Gastro-esophageal reflux disease without esophagitis; E03.9 Hypothyroidism, unspecified; L89.152 Pressure ulcer of sacral region, stage 2; L89.312 Pressure ulcer of right buttock, stage 2; E11.51 Type 2 diabetes mellitus with diabetic peripheral angiopathy without gangrene; E78.5 Hyperlipidemia, unspecified; I69.991 Dysphagia following unspecified cerebrovascular disease; R13.10 Dysphagia, unspecified; I69.922 Dysarthria following unspecified cerebrovascular disease; R49.0 Dysphonia; E87.5 Hyperkalemia; K59.00 Constipation, unspecified; D63.8 Anemia in other chronic diseases classified elsewhere; J43.9 Emphysema, unspecified; R62.7 Adult failure to thrive; R53.1 Weakness; C44.42 Squamous cell carcinoma of skin of scalp and neck; B96.4 Proteus (mirabilis) (morganii) as the cause of diseases classified elsewhere; B95.62 Methicillin resistant Staphylococcus aureus infection as the cause of diseases classified elsewhere; Z99.81 Dependence on supplemental oxygen; Z88.1 Allergy status to other antibiotic agents; Z93.1 Gastrostomy status; Z90.49 Acquired absence of other specified parts of digestive tract; Z68.28 Body mass index [BMI] 28.0-28.9, adult; Z87.891 Personal history of nicotine dependence; Z79.4 Long term (current) use of insulin; Z86.718 Personal history of other venous thrombosis and embolism; Z53.20 Procedure and treatment not carried out because of patient's decision for unspecified reasons
CPT/HCPCS: J1650; J3370

== ENCOUNTER 2019-03-20 19:09 | Observation (INO) | payer SELFPAY ==
[~2019-03-20 19:09] MED LIST changes: +CLONIDINE0.1 MG PO; +DOCUSATE CALCI240 MG PO; +FIASP FLEX100 UNIT/M; +LEVEMIR FL100 UNIT/M SC; +MAGNESIUM OXID400 M3; +PREVACID30 M1 PO; +PREVACID30 M2 PO; +PROVIGIL100 M1; +SURFAK240 MG/CAP PO
[2019-04-28] MEDS ORDERED: LISINOPRIL20 M1 PO (12:45)
[2019-04-28] MEDS ORDERED: ATORVASTATIN CA40 MG PO (12:45)
[2019-04-28] MEDS ORDERED: LOPRESSOR25 MG PO (12:45)
[2019-04-28] MEDS ORDERED: NOVOLOG100 UNIT/M SC (12:45)
[2019-04-28] MEDS ORDERED: LEVEMIR100 UNIT/M SC (12:45)
[2019-04-28] MEDS ORDERED: TRANSDERM-1 MG/3 DAY TD (12:45)
[2019-04-28] MEDS ORDERED: RANITIDINE HCL150 MG PO (12:45)
[2019-04-28] MEDS ORDERED: LACTULOSE10 GM/15 M PO (12:45)
[2019-04-28] MEDS ORDERED: IPRATROPIU0.5 MG/3 M IN (12:45)
[2019-04-28] MEDS ORDERED: catapres PO (12:45)
[2019-04-28] MEDS ORDERED: AZTREONAM1 GM IV (12:45)
[2019-04-28] MEDS ORDERED: BACITRACIN500 UNIT/G TOP (12:45)
== END 2019-04-28 19:08 | DRG 55 ==
LOC: MS2 19:09
PROVIDERS: ADMIT Internal Medicine Nephrology; ATTEND Internal Medicine Nephrology
DX: D32.0 Benign neoplasm of cerebral meninges (principal); N39.0 Urinary tract infection, site not specified; G93.40 Encephalopathy, unspecified; I10 Essential (primary) hypertension; J44.9 Chronic obstructive pulmonary disease, unspecified; I25.10 Atherosclerotic heart disease of native coronary artery without angina pectoris; E78.5 Hyperlipidemia, unspecified; F41.1 Generalized anxiety disorder; E03.9 Hypothyroidism, unspecified
CPT/HCPCS: J1650